=== PATIENT | male | born 1965 | race African-American/Black ===

== ENCOUNTER 2016-09-30 21:31 | Inpatient (IN) | payer OTHER ==
--- NOTE | ~2016-09-30 | DS ---
Discharge Summary [facility] [address] [place]. [address] NAME: VIANEY LOTT : 67 STATUS : DIS IN PAT#: [id number] AGE: 50 ADM/REG DATE : 09/30/16 MR#: [id number] REPORT SERV DATE: 10/22/16 DICTATED BY: KHURRAM FORD DATE: 10/21/16 REPORT STATUS : Draft TRANSCRIBED BY: MODVicky DATE: 10/21/16 Data Collection from hospitalization DISCHARGE DIAGNOSIS(ES): 1. Recurrent Clostridium difficile, status post stool transplant. 2. Chronic diarrhea. 3. Human immunodeficiency virus. 4. End-stage renal disease. 5. Chronic hypotension. 6. Chronic malnutrition. 7. Tobacco use. CONSULTATIONS: Josr Rose M.D.; Reggie Woodall M.D.; Adalid Shen M.D. PROCEDURES PERFORMED: 1. Right upper extremity fistulogram, percutaneous angioplasty of AV fistula collateral outflow with 7 mm balloon, 10/06/2016. 2. Carotid blood flow study, 10/04/2016. 3. EGD and colonoscopy, 10/07/2016. MEDICATIONS: Ziagen 300 mg daily, aspirin 81 mg daily, PhosLo two tablets with meals, Prezista 800 mg daily, Lomotil 5 mg four times a day, Tivicay 50 mg daily, Cymbalta 60 mg daily, Flonase nasal spray one spray nasally daily, Neurontin 600 mg three times a day, Lantus 10 units subcutaneously every morning, Epivir 2.5 mL daily, ProAmatine 10 mg three times a day, Zofran 4 mg every 8 hours as needed, paregoric 25 mL twice a day, Norvir 100 mg daily, Crestor 10 mg daily. He was instructed not to continue vancomycin. CONDITION AT DISCHARGE: Stable. DISPOSITION: The patient was discharged home on a low-sodium, renal diet with activities as instructed. He would follow up with Dr. Josr Rose on 10/25/2016. He would follow up with Dr. Gennaro Robins on 10/19/2016. He would follow up for hemodialysis on 10/12/2016. HOSPITAL COURSE: This is a 50-year-old man who has end-stage renal disease and dialyzes on Mondays, Wednesdays, and Fridays. The patient has a history of C difficile colitis and nonspecific diarrhea. He had been sent home and was to arrange for stool donor to get a stool transplant done, but his sister had failed stool transplant evaluation. The patient had re-presented at this time with complaints of diarrhea ranging between 6 and 12 times per day. The patient was extremely confused about the dose of tincture of opium and had not been taking it. He had diarrhea over the weekend and did not have his dialysis. He was re- admitted at this time for further evaluation and treatment. Upon admission, hemodialysis therapy was performed. The following day, he still had diarrhea. He was very weak. C difficile was now negative, but he still had diarrhea. On 10/04/2016, he was alert and cooperative. He had no focal deficits. A carotid blood flow study was performed. He was seen in consultation by Dr. Adalid Shen. The patient has said his opium drops did not work as intended and that he was still taking oral vancomycin. He described having loose light stools without mucus or fever. He did have some nausea. He Discharge Summary [address] [place]. [address] NAME: VIANYE LOTT : 67 STATUS : DIS IN PAT#: [id number] AGE: 50 ADM/REG DATE : 09/30/16 MR#: [id number] REPORT SERV DATE: 10/22/16 DICTATED BY: KHURRAM FORD DATE: 10/21/16 REPORT STATUS : Draft TRANSCRIBED BY: MONTEZ DATE: 10/21/16 felt that the patient's current diarrhea was unlikely to be due to C difficile. The patient was seen by Dr. Josr Rose. Currently, the patient says that he had no abdominal pain, but he did have diarrhea 6 to 12 times per day. He was not taking his opium. He had no nausea or vomiting. We were going to keep the patient on a tincture of opium. Paregoric was stopped. Arrangements were going to be made for a stool transplant as quickly as possible. On 10/05/2016, he has also seen by Dr. Reggie Woodall for evaluation of poorly functioning left upper extremity AV fistula. The patient has had a right radiocephalic fistula that had been placed by Dr. Glover in the past. He revised this several months prior to admission by passing an area of stenosis in the vein. They were having high venous pressures now on dialysis, and he had been asked to evaluate the patient regarding this. The patient denied any complaints other than the chronic diarrhea. He does not had any problems with his fistula. He reviewed Dr. Glover's previous op note. It appeared that the cephalic vein had been occluded. His outflow was via his basilic vein, and Dr. Glover patched a segment of his basilic vein. It looks like this patient has outflow issues for his fistula. The risks and benefits of possible intervention were discussed and he agreed to proceed. On 10/06/2016, the patient was taken to the operating room by Dr. Woodall where he underwent the above- mentioned procedure. He tolerated this well, and there were no complications. It had been elected to continue the paregoric. Hemodialysis therapy was performed. Plans were being made to proceed with stool transplant. Paregoric had been discontinued. He continued to have loose stools. On 10/07/2016, the patient underwent EGD and colonoscopy. This was performed by Dr. Josr Rose. There was gastritis in the antrum that was biopsied. There was a biopsy of the small bowel pain. Gastric fundus was also biopsied. Fecal transplant was performed. On postop day #1, he seemed to be feeling better. Paregoric was increased. He continued to have some loose stools. On 10/09/2016, his stools were still loose. He was alert and cooperative. He had good pain control. C difficile study was negative. Sliding scale insulin was increased to level 2. The next day, he had only one loose stool according to the nurse, but another nurse reported three loose stools. Oral vancomycin was stopped. The patient wanted to go home. On 10/11/2016, he had one stool that morning that was more formed. His blood sugar was elevated. His lungs were clear. He had no edema. Hemodialysis therapy was performed. He was evaluated by Physical Therapy. Discharge instructions were given. Due to his improved and stable condition, he was discharged home with the above-stated instructions. Information collected by: Yael Pemberton I submit the above information as my discharge summary. TG/MODL Khurram Ford M.D. / [id number] CC: Discharge Summary [place] [address] [place]. [address] NAME: VIANEY LOTT : 67 STATUS : DIS IN PAT#: [id number] AGE: 50 ADM/REG DATE : 09/30/16 MR#: [id number] REPORT SERV DATE: 10/22/16 DICTATED BY: KHURRAM FORD T DATE: 10/21/16 REPORT STATUS : Draft TRANSCRIBED BY: MODL DATE: 10/21/16 Pacheco Young M.D. Paul Cornea, M.D. Nabil Malek, D.O. Sachin V Phade, M.D.
--- NOTE | ~2016-09-30 | OP ---
Record Of Operation [facility] [address] [place]. [address] NAME: VIANEY LOTT : 67 STATUS : ADM IN PAT#: [id number] AGE: 50 ADM/REG DATE : 09/30/16 MR#: [id number] REPORT SERV DATE: 10/09/16 DICTATED BY: REGGEI WOODALL DATE: 10/09/16 REPORT STATUS : Draft TRANSCRIBED BY: MODL DATE: 10/09/16 DATE OF PROCEDURE: 10/06/2016 PREOPERATIVE DIAGNOSIS: End-stage renal disease with poorly functioning right upper extremity arteriovenous fistula. POSTOPERATIVE DIAGNOSIS: End-stage renal disease with poorly functioning right upper extremity arteriovenous fistula. PROCEDURE: 1. Right upper extremity fistulogram. 2. Percutaneous angioplasty of an AV fistula collateral outflow with a 7 mm balloon. SURGEON: Reggie Woodall M.D. ROLL UP GUIDER OPERATOR: None. ANESTHESIA: MAC plus local. INDICATIONS: The patient is a 50-year-old gentleman, who has had a right radiocephalic fistula with revision by Dr. Glover. He now presents with high venous pressures and needs a fistulogram with possible intervention. DESCRIPTION OF PROCEDURE: After informed consent was obtained, the patient was taken to the operating room, and placed in the supine position on the operating table. Monitored anesthesia was administered. The patient's right upper extremity was prepped and draped in usual sterile fashion. Ultrasound-guided access was obtained of the right upper extremity AV fistula in an antegrade fashion. I obtained a fistulogram. This demonstrated a patent radiocephalic fistula. At the antecubital fossa, there were simply collaterals providing outflow. There was no named outflow. There was reconstitution of the deep venous system more centrally. I placed a sheath and tried to cross into a basilic or cephalic vein. I was unsuccessful. I obtained multiple oblique angiograms and was ultimately able to get a wire into a collateral more centrally toward the shoulder. Once again, appeared to be in a series of collaterals. I angioplastied the areas of stenoses within these collaterals with a 7 mm balloon. There was marked improvement with this, but there was still a relatively suboptimal outflow for this fistula. Seeing as there was no straight forward answer for this, I withdrew my wire, catheter, and sheath and placed a stitch for hemostasis. The patient tolerated the procedure well without any intraprocedural complications noted. KHLOE/MONTEZ Reggie Woodall M.D. Record Of Operation [address] [place]. [address] NAME: VIANEY LOTT : 67 STATUS : ADM IN [facility]#: [id number] AGE: 50 ADM/REG DATE : 09/30/16 MR#: [id number] REPORT SERV DATE: 10/09/16 DICTATED BY: REGGIE WOODALL DATE: 10/09/16 REPORT STATUS : Draft TRANSCRIBED BY: MONTEZ DATE: 10/09/16 / [id number] CC: Khurram Child M.D.
--- NOTE | ~2016-09-30 | CN ---
Consultation Report [facility] [address] [place]. [address] NAME: VIANEY LOTT : 67 STATUS : ADM IN [facility]#: [id number] AGE: 50 ADM/REG DATE : 09/30/16 MR#: [id number] REPORT SERV DATE: 10/04/16 DICTATED BY: SHRUTHI CHARLES DATE: 10/03/16 REPORT STATUS : Draft TRANSCRIBED BY: MODVicky DATE: 10/03/16 CONSULTATION MR. KAYLIE WINTERS IS A PLEASANT GENTLEMAN WITH A HISTORY OF C. DIFF COLITIS AND HIV, ALSO HAS NONSPECIFIC DIARRHEA. THE PATIENT HAD BEEN SENT HOME AND WAS TO ARRANGE FOR A STOOL DONOR TO GET A STOOL TRANSPLANT DONE BUT HIS SISTER HAS FAILED STOOL TRANSPLANT EVALUATION, AND THE PATIENT IS BACK HERE WITH COMPLAINTS OF DIARRHEA BETWEEN 6 AND 12 TIMES PER DAY. ALSO, THE PATIENT IS EXTREMELY CONFUSED ABOUT THE DOSE OF TINCTURE OF OPIUM AND HAS NOT BEEN TAKING IT. HE HAD DIARRHEA OVER THE WEEKEND, DID NOT HAVE HIS DIALYSIS, WAS READMITTED FOR EVALUATION AND DIALYSIS. CURRENTLY, THE PATIENT STATES THAT HE HAS NO ABDOMINAL PAIN BUT HAS DIARRHEA FROM 6-12 TIMES PER DAY AND IS NOT TAKING HIS TINCTURE OF OPIUM. HAS NO NAUSEA OR VOMITING. DATE OF CONSULTATION: SOCIAL HISTORY: Does not take any alcohol. Does not take any IV drugs. FAMILY HISTORY: Unremarkable at this time. PAST MEDICAL HISTORY: Significant for C. diff colitis and chronic kidney failure, on permanent dialysis and has HIV infection. The HIV infection is being treated by Dr. Robins. PHYSICAL EXAMINATION: VITAL SIGNS: His temperature is normal. BP is 150/80. Peripheral pulses are well felt. NECK: Supple. Trachea is central. Carotids are well felt on both sides. CARDIOVASCULAR SYSTEM: S1, S2 are heard. There is no S3. LABORATORY DATA: Labs show a white cell count of 8.2, hemoglobin is 11, hematocrit is 34, and platelet count is 116,000. Renal function panel shows a sodium of 144, potassium is 4.5, chloride is 112, carbon dioxide is 14. BUN is 44. Creatinine is 12.5. Blood sugar is 105. Calcium is 6. Albumin is 2.5. SGOT and SGPT are 99 and 85. Alkaline phosphatase is 180. Total bilirubin is 0.6 and amylase is low as 26. His stools are negative for C. diff. CURRENT MEDICATIONS: Abacavir 1 tablet daily; aspirin 81 mg daily; calcium acetate 667 mg daily; Prezista 800 mg 1 tablet daily; Lomotil 2.5 mg 3 times a day; Tivicay 50 mg per day; Cymbalta 60 mg per day; Flonase 1 spray twice daily; gabapentin 600 mg p.o. b.i.d.; insulin Lantus 10 units subcu every morning; lamivudine 2.5 mL p.o. daily; midodrine 10 mg p.o. 3 times a day; Paregoric 5 mL daily; Norvir 100 mg 1 cap daily; Crestor 10 mg per day; and vancomycin 125 mg p.o. twice a day. IMPRESSION: 1. Chronic diarrhea, C. diff negative at this time. 2. End-stage renal disease. 3. HIV infection treatment. Consultation Report [place] [address] [place]. [address] NAME: VIANEY LOTT : 67 STATUS : ADM IN [facility]#: [id number] AGE: 50 ADM/REG DATE : 09/30/16 MR#: [id number] REPORT SERV DATE: 10/04/16 DICTATED BY: SHRUTHI CHARLES DATE: 10/03/16 REPORT STATUS : Draft TRANSCRIBED BY: MONTEZ DATE: 10/03/16 4. Diabetes mellitus. PLAN: We will keep the patient on tincture of opium. We will stop the paregoric. We will arrange for a transplant as quickly as possible. ELY/MONTEZ Shruthi Charles M.D. / [id number] CC: Khurram Child M.D.
--- NOTE | ~2016-09-30 | CN ---
Consultation Report [facility] [address] [place]. [address] NAME: VIANEY LOTT : 67 STATUS : ADM IN PAT#: [id number] AGE: 50 ADM/REG DATE : 09/30/16 MR#: [id number] REPORT SERV DATE: 10/10/16 DICTATED BY: REGGIE WOODALL DATE: 10/09/16 REPORT STATUS : Draft TRANSCRIBED BY: MODVicky DATE: 10/09/16 CONSULT NOTE DATE OF CONSULTATION: 10/06/2016 REASON FOR CONSULTATION: Evaluation for poorly functioning left upper extremity AV fistula. BRIEF HISTORY: The patient is a 50-year-old gentleman with past medical history significantfor end-stage renal disease, diabetes, and HIV who was admitted to the hospital for C. difficile colitis. He has been actually apparently needing a stool transplant. He has had a right radiocephalic fistula placed by Dr. Glover in the past. He revised it several months ago by patching an area of stenosis in the vein. They were having high venous pressures, now on dialysis, so I was asked to evaluate him for this. The patient denies any complaints other than chronic diarrhea. He does not have any problems with his fistula. PAST MEDICAL HISTORY: C. difficile colitis, end-stage renal disease, HIV infection, diabetes. SURGICAL HISTORY: The aforementioned dialysis procedures. SOCIAL HISTORY: He denies any alcohol or drug use, but continues to smoke. FAMILY HISTORY: Unremarkable. MEDICATIONS AND ALLERGIES: Documented on the chart and were reviewed. REVIEW OF SYSTEMS: A complete review of systems was performed and is negative with the exception of the aforementioned findings. PHYSICAL EXAMINATION: VITAL SIGNS: Documented on the chart and were reviewed. GENERAL: The patient is awake, alert, oriented, in no apparent distress. HEAD AND NECK: Benign without any carotid bruits. HEART: Regular rate rhythm. LUNGS: Clear. ABDOMEN: Soft, nontender, nondistended with a nonaneurysmal aorta. EXTREMITIES: He has a normal complement of upper extremity pulses without any significant edema or ischemic ulcerations. His right radiocephalic fistula is pulsatile. He has palpable femoral pulses. His feet are pink and warm. NEUROLOGIC: Grossly nonfocal. MUSCULOSKELETAL: Otherwise benign. Consultation Report [facility] [address] [place]. [address] NAME: VIANEY LOTT : 67 STATUS : ADM IN PAT#: [id number] AGE: 50 ADM/REG DATE : 09/30/16 MR#: [id number] REPORT SERV DATE: 10/10/16 DICTATED BY: REGGIE WOODALL DATE: 10/09/16 REPORT STATUS : Draft TRANSCRIBED BY: MONTEZ DATE: 10/09/[address] Glover's previous operative notes. It sounds like his cephalic vein has been occluded. His outflow was via his basilic vein and Dr. Glover patched a segment of his basilic vein. ASSESSMENT AND PLAN: It looks like this gentleman has outflow issues for his fistula. I talked to him about the risks, benefits, and alternatives of the fistulogram with possible intervention. He agrees to proceed. KHLOE/MONTEZ Reggie Woodall M.D. / [id number] CC: Khurram Child M.D.
[~2016-09-30 21:31] MED LIST: ADALAT CC60 MG PO; APRES25 PO; ASAB PO; COREG25 PO; CRESTOR PO; CRESTOR10 PO; CYMBALTA60 PO; DEMA20 PO; DEMADEX PO; EPIVIR PO; FLAG500TAB PO; FLEX PO; FLONASE NAS; FLORASTOR250 MG PO; HUMALOG SC; HUMALOGPEN SC; IMOD PO; LAMIVUDINE PO; LANTUS SC; LANTUSCART SC; LOM PO; MIDODRINE PO; NEUR600 PO; NIFEDIAC CC60 MG PO; NORVIR100 PO; PAREGORIC TINCT5 ML PO/LIQ; PHOSLO PO; PREZISTA PO; PREZISTA600 MG PO; PREZISTA800 MG PO; PROAMATINE10 MG PO; TINCTURE OF OPIUM PO; TIVICAY50 MG PO; TRIUMEQ; TRIUMEQ 600/50/300 PO; ULTRAM50 PO; VALTREX5 PO; VANCOCIN HCL125 MG PO; ZIAGEN 300 MG300 MG PO; ZOFRAN ODT4 MG PO; ZOFRAN4 PO; [UNRECOGNIZED DRUG - OTHER]; [UNRECOGNIZED DRUG - OTHER] PO
[2016-10-01 04:03] LABS: BASOPHILS 0.3 %; BASOPHILS ABSOLUTE 0.02 10/3/uL (0.0-0.16); EOSINOPHILS 1.7 %; EOSINOPHILS ABSOLUTE 0.13 10/3/uL (0.0-0.53); HEMATOCRIT 31.2 % (40.0-51.0); HEMOGLOBIN 10.5 g/dL (13.6-17.8); IMMATURE GRANULOCYTES 0.1 %; IMMATURE GRANULOCYTES ABSOLUTE 0.01 10/3/uL (0.0-0.11); LYMPHOCYTES 36.8 %; LYMPHOCYTES ABSOLUTE 2.76 10/3/uL (0.67-4.30); MEAN CORPUS HGB CONC 33.7 g/dL (32.0-36.0); MEAN CORPUSCULAR HEMOGLOB 31.4 pg (26.0-34.0); MEAN CORPUSCULAR VOLUME 93.4 fL (80-100); MONOCYTES 5.5 %; MONOCYTES ABSOLUTE 0.41 10/3/uL (0.21-1.20); NEUTROPHILS 55.6 %; NEUTROPHILS ABSOLUTE 4.17 10/3/uL (2.02-8.40); RBC DISTRIBUTION WIDTH 15.6 % (12.0-16.0); RED CELL COUNT 3.34 10/6/uL (4.7-6.1); WHITE BLOOD CELLS 7.5 10/3/uL (4.5-10.5)
[2016-10-01 04:05] LABS: MANUAL DIFF NO %; PLATELET COUNT 79 10/3/uL (150-400)
[2016-10-01 04:25] LABS: ALBUMIN 2.8 G/DL (3.5-5.0); CHLORIDE, SERUM 109 MMOL/L (96-112); SODIUM, SERUM 143 MMOL/L (135-148)
[2016-10-01 04:30] LABS: BUN (BLOOD UREA NITROGEN) 28 MG/DL (6-23); CALCIUM, SERUM 6.2 MG/DL (8.5-10.4); CO2 (CARBON DIOXIDE) 19 MMOL/L (24-34); GFR AFRICAN AMERICAN 7 ML/MIN (>=60); GFR NON AFRICAN AMERICAN 6 ML/MIN (>=60); GLUCOSE, SERUM 136 MG/DL (60-99); PHOSPHORUS, SERUM 6.1 MG/DL (2.5-4.5)
[2016-10-01 04:43] LABS: PLATELET ESTIMATE DEC (ADEQUATE); RBC MORPHOLOGY NORM (NORMAL)
[2016-10-02 05:01] LABS: BASOPHILS 0.3 %; BASOPHILS ABSOLUTE 0.03 10/3/uL (0.0-0.16); EOSINOPHILS 2.5 %; EOSINOPHILS ABSOLUTE 0.22 10/3/uL (0.0-0.53); HEMATOCRIT 31.1 % (40.0-51.0); HEMOGLOBIN 10.4 g/dL (13.6-17.8); IMMATURE GRANULOCYTES 0.1 %; IMMATURE GRANULOCYTES ABSOLUTE 0.01 10/3/uL (0.0-0.11); LYMPHOCYTES 39.7 %; LYMPHOCYTES ABSOLUTE 3.43 10/3/uL (0.67-4.30); MEAN CORPUS HGB CONC 33.4 g/dL (32.0-36.0); MEAN CORPUSCULAR HEMOGLOB 31.3 pg (26.0-34.0); MEAN CORPUSCULAR VOLUME 93.7 fL (80-100); MEAN PLATELET VOLUME 11.1 fL (9.2-13.0); MONOCYTES 7.1 %; MONOCYTES ABSOLUTE 0.61 10/3/uL (0.21-1.20); NEUTROPHILS 50.3 %; NEUTROPHILS ABSOLUTE 4.35 10/3/uL (2.02-8.40); PLATELET COUNT 77 10/3/uL (150-400); RBC DISTRIBUTION WIDTH 15.8 % (12.0-16.0); RED CELL COUNT 3.32 10/6/uL (4.7-6.1); WHITE BLOOD CELLS 8.7 10/3/uL (4.5-10.5)
[2016-10-02 05:05] LABS: MANUAL DIFF NO %
[2016-10-02 05:15] LABS: ALBUMIN 2.8 G/DL (3.5-5.0); CHLORIDE, SERUM 108 MMOL/L (96-112); CO2 (CARBON DIOXIDE) 18 MMOL/L (24-34); GLUCOSE, SERUM 163 MG/DL (60-99); POTASSIUM, SERUM 4.4 MMOL/L (3.5-5.3); SODIUM, SERUM 140 MMOL/L (135-148)
[2016-10-02 05:23] LABS: BUN (BLOOD UREA NITROGEN) 36 MG/DL (6-23); CALCIUM, SERUM 6.5 MG/DL (8.5-10.4); GFR AFRICAN AMERICAN 6 ML/MIN (>=60); GFR NON AFRICAN AMERICAN 5 ML/MIN (>=60); PHOSPHORUS, SERUM 7.5 MG/DL (2.5-4.5)
[2016-10-03 11:35] LABS: HEMATOCRIT 33.6 % (40.0-51.0); HEMOGLOBIN 11.4 g/dL (13.6-17.8); MEAN CORPUS HGB CONC 33.9 g/dL (32.0-36.0); MEAN CORPUSCULAR HEMOGLOB 31.9 pg (26.0-34.0); MEAN CORPUSCULAR VOLUME 94.1 fL (80-100); MEAN PLATELET VOLUME 11.6 fL (9.2-13.0); PLATELET COUNT 75 10/3/uL (150-400); RBC DISTRIBUTION WIDTH 15.8 % (12.0-16.0); RED CELL COUNT 3.57 10/6/uL (4.7-6.1)
[2016-10-03 11:36] LABS: MANUAL DIFF YES %; WHITE BLOOD CELLS 12.6 10/3/uL (4.5-10.5)
[2016-10-03 11:58] LABS: ALBUMIN 2.8 G/DL (3.5-5.0); CALCIUM, SERUM 7.1 MG/DL (8.5-10.4); CHLORIDE, SERUM 109 MMOL/L (96-112); PHOSPHORUS, SERUM 7.9 MG/DL (2.5-4.5); SODIUM, SERUM 137 MMOL/L (135-148)
[2016-10-03 12:00] LABS: EOSINOPHILS 2 %; EOSINOPHILS ABSOLUTE (CALC) 0.25 10/3/uL (0.0-0.53); LYMPHOCYTES 15 %; LYMPHOCYTES ABSOLUTE (CALC) 1.89 10/3/uL (0.67-4.30); MONOCYTES 2 %; MONOCYTES ABSOLUTE (CALC) 0.25 10/3/uL (0.21-1.20); NEUTROPHILS ABSOLUTE (CALC) 10.21 10/3/uL (2.02-8.40); PLATELET ESTIMATE DEC (ADEQUATE); RBC MORPHOLOGY NORM (NORMAL); SEGMENTED NEUTROPHIL (0) 81 %; TOTAL NUCLEATED CELLS 100
[2016-10-03 12:01] LABS: BUN (BLOOD UREA NITROGEN) 47 MG/DL (6-23); CO2 (CARBON DIOXIDE) 14 MMOL/L (24-34); GFR AFRICAN AMERICAN 5 ML/MIN (>=60); GFR NON AFRICAN AMERICAN 5 ML/MIN (>=60); GLUCOSE, SERUM 124 MG/DL (60-99); POTASSIUM, SERUM 5.4 MMOL/L (3.5-5.3)
[2016-10-03 16:10] LABS: CPK 65 U/L (0-200); TROPONIN I <0.02 NG/ML (<0.05)
[2016-10-03 16:12] LABS: CK-MB 3.9 NG/ML
[2016-10-03 21:41] LABS: CPK 67 U/L (0-200); TROPONIN I <0.02 NG/ML (<0.05)
[2016-10-04 04:15] LABS: BASOPHILS 0.4 %; BASOPHILS ABSOLUTE 0.03 10/3/uL (0.0-0.16); EOSINOPHILS 3.1 %; EOSINOPHILS ABSOLUTE 0.25 10/3/uL (0.0-0.53); HEMATOCRIT 32.2 % (40.0-51.0); HEMOGLOBIN 11.1 g/dL (13.6-17.8); IMMATURE GRANULOCYTES 0.1 %; IMMATURE GRANULOCYTES ABSOLUTE 0.01 10/3/uL (0.0-0.11); LYMPHOCYTES 34.9 %; LYMPHOCYTES ABSOLUTE 2.79 10/3/uL (0.67-4.30); MEAN CORPUS HGB CONC 34.5 g/dL (32.0-36.0); MEAN CORPUSCULAR VOLUME 92.8 fL (80-100); MEAN PLATELET VOLUME 11.6 fL (9.2-13.0); MONOCYTES ABSOLUTE 0.48 10/3/uL (0.21-1.20); NEUTROPHILS 55.5 %; NEUTROPHILS ABSOLUTE 4.43 10/3/uL (2.02-8.40); PLATELET COUNT 76 10/3/uL (150-400); RBC DISTRIBUTION WIDTH 15.5 % (12.0-16.0); RED CELL COUNT 3.47 10/6/uL (4.7-6.1)
[2016-10-04 04:19] LABS: MANUAL DIFF NO %
[2016-10-04 04:24] LABS: CALCIUM, SERUM 7.6 MG/DL (8.5-10.4); CHLORIDE, SERUM 107 MMOL/L (96-112); GLUCOSE, SERUM 144 MG/DL (60-99); SODIUM, SERUM 139 MMOL/L (135-148)
[2016-10-04 04:27] LABS: CPK 61 U/L (0-200); TROPONIN I 0.02 NG/ML (<0.05)
[2016-10-04 04:41] LABS: ALBUMIN 3.6 G/DL (3.5-5.0); BUN (BLOOD UREA NITROGEN) 28 MG/DL (6-23); CO2 (CARBON DIOXIDE) 20 MMOL/L (24-34); CREATININE 7.95 MG/DL (0.70-1.30); GFR AFRICAN AMERICAN 8 ML/MIN (>=60); GFR NON AFRICAN AMERICAN 7 ML/MIN (>=60); PHOSPHORUS, SERUM 5.8 MG/DL (2.5-4.5); POTASSIUM, SERUM 4.2 MMOL/L (3.5-5.3)
[2016-10-04 04:42] LABS: CK-MB 4.1 NG/ML
[2016-10-04 04:56] LABS: PLATELET ESTIMATE DEC (ADEQUATE)
[2016-10-04 04:57] LABS: RBC MORPHOLOGY NORM (NORMAL)
[2016-10-05 19:28] LABS: BASOPHILS 0.6 %; BASOPHILS ABSOLUTE 0.05 10/3/uL (0.0-0.16); EOSINOPHILS 3.2 %; EOSINOPHILS ABSOLUTE 0.29 10/3/uL (0.0-0.53); HEMATOCRIT 32.1 % (40.0-51.0); HEMOGLOBIN 10.8 g/dL (13.6-17.8); IMMATURE GRANULOCYTES 0.1 %; IMMATURE GRANULOCYTES ABSOLUTE 0.01 10/3/uL (0.0-0.11); LYMPHOCYTES 42.4 %; MEAN CORPUS HGB CONC 33.6 g/dL (32.0-36.0); MEAN CORPUSCULAR VOLUME 92.2 fL (80-100); MEAN PLATELET VOLUME 10.7 fL (9.2-13.0); MONOCYTES 9.4 %; MONOCYTES ABSOLUTE 0.84 10/3/uL (0.21-1.20); NEUTROPHILS 44.3 %; NEUTROPHILS ABSOLUTE 3.98 10/3/uL (2.02-8.40); PLATELET COUNT 92 10/3/uL (150-400); RBC DISTRIBUTION WIDTH 15.5 % (12.0-16.0); RED CELL COUNT 3.48 10/6/uL (4.7-6.1)
[2016-10-05 19:29] LABS: MANUAL DIFF NO %
[2016-10-05 19:48] LABS: ALBUMIN 3.8 G/DL (3.5-5.0); BUN (BLOOD UREA NITROGEN) 47 MG/DL (6-23); CALCIUM, SERUM 7.6 MG/DL (8.5-10.4); CHLORIDE, SERUM 105 MMOL/L (96-112); CO2 (CARBON DIOXIDE) 19 MMOL/L (24-34); GFR AFRICAN AMERICAN 6 ML/MIN (>=60); GFR NON AFRICAN AMERICAN 5 ML/MIN (>=60); GLUCOSE, SERUM 152 MG/DL (60-99); PHOSPHORUS, SERUM 6.7 MG/DL (2.5-4.5); SODIUM, SERUM 139 MMOL/L (135-148)
[2016-10-06 05:41] LABS: BASOPHILS 0.3 %; BASOPHILS ABSOLUTE 0.02 10/3/uL (0.0-0.16); EOSINOPHILS 2.8 %; EOSINOPHILS ABSOLUTE 0.22 10/3/uL (0.0-0.53); HEMATOCRIT 30.6 % (40.0-51.0); HEMOGLOBIN 10.3 g/dL (13.6-17.8); IMMATURE GRANULOCYTES 0.1 %; IMMATURE GRANULOCYTES ABSOLUTE 0.01 10/3/uL (0.0-0.11); LYMPHOCYTES 33.3 %; LYMPHOCYTES ABSOLUTE 2.58 10/3/uL (0.67-4.30); MEAN CORPUS HGB CONC 33.7 g/dL (32.0-36.0); MEAN CORPUSCULAR HEMOGLOB 31.2 pg (26.0-34.0); MEAN CORPUSCULAR VOLUME 92.7 fL (80-100); MEAN PLATELET VOLUME 10.8 fL (9.2-13.0); MONOCYTES 10.6 %; MONOCYTES ABSOLUTE 0.82 10/3/uL (0.21-1.20); NEUTROPHILS 52.9 %; PLATELET COUNT 84 10/3/uL (150-400); RBC DISTRIBUTION WIDTH 15.5 % (12.0-16.0); WHITE BLOOD CELLS 7.8 10/3/uL (4.5-10.5)
[2016-10-06 05:47] LABS: MANUAL DIFF NO %
[2016-10-06 05:59] LABS: ALBUMIN 4.4 G/DL (3.5-5.0); CALCIUM, SERUM 8.2 MG/DL (8.5-10.4); CHLORIDE, SERUM 103 MMOL/L (96-112); GLUCOSE, SERUM 128 MG/DL (60-99); POTASSIUM, SERUM 4.8 MMOL/L (3.5-5.3); SODIUM, SERUM 141 MMOL/L (135-148)
[2016-10-06 06:04] LABS: BUN (BLOOD UREA NITROGEN) 31 MG/DL (6-23); CO2 (CARBON DIOXIDE) 25 MMOL/L (24-34); CREATININE 7.69 MG/DL (0.70-1.30); GFR AFRICAN AMERICAN 9 ML/MIN (>=60); GFR NON AFRICAN AMERICAN 7 ML/MIN (>=60)
[2016-10-06 06:05] LABS: PHOSPHORUS, SERUM 5.6 MG/DL (2.5-4.5)
[2016-10-07 18:19] LABS: BASOPHILS 0.7 %; BASOPHILS ABSOLUTE 0.05 10/3/uL (0.0-0.16); EOSINOPHILS 3.7 %; EOSINOPHILS ABSOLUTE 0.28 10/3/uL (0.0-0.53); HEMATOCRIT 30.1 % (40.0-51.0); HEMOGLOBIN 10.1 g/dL (13.6-17.8); IMMATURE GRANULOCYTES 0.3 %; IMMATURE GRANULOCYTES ABSOLUTE 0.02 10/3/uL (0.0-0.11); LYMPHOCYTES 35.5 %; LYMPHOCYTES ABSOLUTE 2.67 10/3/uL (0.67-4.30); MEAN CORPUS HGB CONC 33.6 g/dL (32.0-36.0); MEAN CORPUSCULAR HEMOGLOB 31.3 pg (26.0-34.0); MEAN CORPUSCULAR VOLUME 93.2 fL (80-100); MEAN PLATELET VOLUME 11.2 fL (9.2-13.0); MONOCYTES 8.4 %; MONOCYTES ABSOLUTE 0.63 10/3/uL (0.21-1.20); NEUTROPHILS 51.4 %; NEUTROPHILS ABSOLUTE 3.87 10/3/uL (2.02-8.40); PLATELET COUNT 87 10/3/uL (150-400); RBC DISTRIBUTION WIDTH 15.4 % (12.0-16.0); RED CELL COUNT 3.23 10/6/uL (4.7-6.1); WHITE BLOOD CELLS 7.5 10/3/uL (4.5-10.5)
[2016-10-07 18:20] LABS: MANUAL DIFF NO %
[2016-10-07 18:29] LABS: ALBUMIN 3.8 G/DL (3.5-5.0); BUN (BLOOD UREA NITROGEN) 39 MG/DL (6-23); CALCIUM, SERUM 8.2 MG/DL (8.5-10.4); CHLORIDE, SERUM 105 MMOL/L (96-112); CO2 (CARBON DIOXIDE) 22 MMOL/L (24-34); CREATININE 9.45 MG/DL (0.70-1.30); GFR AFRICAN AMERICAN 7 ML/MIN (>=60); GFR NON AFRICAN AMERICAN 6 ML/MIN (>=60); GLUCOSE, SERUM 180 MG/DL (60-99); PHOSPHORUS, SERUM 7.1 MG/DL (2.5-4.5); POTASSIUM, SERUM 4.9 MMOL/L (3.5-5.3); SODIUM, SERUM 140 MMOL/L (135-148)
[2016-10-08 05:39] LABS: BASOPHILS 0.5 %; BASOPHILS ABSOLUTE 0.03 10/3/uL (0.0-0.16); EOSINOPHILS 3.7 %; EOSINOPHILS ABSOLUTE 0.22 10/3/uL (0.0-0.53); HEMATOCRIT 29.8 % (40.0-51.0); IMMATURE GRANULOCYTES 0.2 %; IMMATURE GRANULOCYTES ABSOLUTE 0.01 10/3/uL (0.0-0.11); LYMPHOCYTES ABSOLUTE 2.41 10/3/uL (0.67-4.30); MEAN CORPUS HGB CONC 33.6 g/dL (32.0-36.0); MEAN CORPUSCULAR HEMOGLOB 31.5 pg (26.0-34.0); MEAN PLATELET VOLUME 11.6 fL (9.2-13.0); MONOCYTES 9.7 %; MONOCYTES ABSOLUTE 0.57 10/3/uL (0.21-1.20); NEUTROPHILS 44.9 %; NEUTROPHILS ABSOLUTE 2.64 10/3/uL (2.02-8.40); PLATELET COUNT 88 10/3/uL (150-400); RBC DISTRIBUTION WIDTH 15.4 % (12.0-16.0); RED CELL COUNT 3.17 10/6/uL (4.7-6.1); WHITE BLOOD CELLS 5.9 10/3/uL (4.5-10.5)
[2016-10-08 05:44] LABS: MANUAL DIFF NO %
[2016-10-08 05:47] LABS: ALBUMIN 3.9 G/DL (3.5-5.0); CALCIUM, SERUM 8.2 MG/DL (8.5-10.4); CHLORIDE, SERUM 108 MMOL/L (96-112); CO2 (CARBON DIOXIDE) 22 MMOL/L (24-34); GLUCOSE, SERUM 183 MG/DL (60-99); POTASSIUM, SERUM 4.1 MMOL/L (3.5-5.3); SODIUM, SERUM 144 MMOL/L (135-148)
[2016-10-08 06:03] LABS: BUN (BLOOD UREA NITROGEN) 22 MG/DL (6-23); CREATININE 6.04 MG/DL (0.70-1.30); GFR AFRICAN AMERICAN 12 ML/MIN (>=60); GFR NON AFRICAN AMERICAN 10 ML/MIN (>=60); PHOSPHORUS, SERUM 5.1 MG/DL (2.5-4.5)
[2016-10-09 06:53] LABS: ALBUMIN 3.6 G/DL (3.5-5.0); CALCIUM, SERUM 7.7 MG/DL (8.5-10.4); CHLORIDE, SERUM 105 MMOL/L (96-112); CO2 (CARBON DIOXIDE) 24 MMOL/L (24-34); SODIUM, SERUM 141 MMOL/L (135-148)
[2016-10-09 06:55] LABS: BUN (BLOOD UREA NITROGEN) 35 MG/DL (6-23); CREATININE 7.94 MG/DL (0.70-1.30); GFR AFRICAN AMERICAN 8 ML/MIN (>=60); GFR NON AFRICAN AMERICAN 7 ML/MIN (>=60); GLUCOSE, SERUM 223 MG/DL (60-99); PHOSPHORUS, SERUM 6.8 MG/DL (2.5-4.5); POTASSIUM, SERUM 5.3 MMOL/L (3.5-5.3)
[2016-10-10 17:45] LABS: BASOPHILS 0.4 %; BASOPHILS ABSOLUTE 0.03 10/3/uL (0.0-0.16); EOSINOPHILS ABSOLUTE 0.39 10/3/uL (0.0-0.53); HEMATOCRIT 27.6 % (40.0-51.0); HEMOGLOBIN 9.4 g/dL (13.6-17.8); IMMATURE GRANULOCYTES 0.1 %; IMMATURE GRANULOCYTES ABSOLUTE 0.01 10/3/uL (0.0-0.11); LYMPHOCYTES 39.5 %; LYMPHOCYTES ABSOLUTE 3.05 10/3/uL (0.67-4.30); MEAN CORPUS HGB CONC 34.1 g/dL (32.0-36.0); MEAN CORPUSCULAR HEMOGLOB 31.3 pg (26.0-34.0); MEAN PLATELET VOLUME 11.2 fL (9.2-13.0); MONOCYTES 7.2 %; MONOCYTES ABSOLUTE 0.56 10/3/uL (0.21-1.20); NEUTROPHILS 47.8 %; NEUTROPHILS ABSOLUTE 3.69 10/3/uL (2.02-8.40); PLATELET COUNT 103 10/3/uL (150-400); RBC DISTRIBUTION WIDTH 15.4 % (12.0-16.0); WHITE BLOOD CELLS 7.7 10/3/uL (4.5-10.5)
[2016-10-10 17:48] LABS: MANUAL DIFF NO %
[2016-10-10 17:54] LABS: ALBUMIN 3.5 G/DL (3.5-5.0); BUN (BLOOD UREA NITROGEN) 54 MG/DL (6-23); CALCIUM, SERUM 7.6 MG/DL (8.5-10.4); CHLORIDE, SERUM 107 MMOL/L (96-112); CO2 (CARBON DIOXIDE) 18 MMOL/L (24-34); CREATININE 9.89 MG/DL (0.70-1.30); GFR AFRICAN AMERICAN 6 ML/MIN (>=60); GFR NON AFRICAN AMERICAN 6 ML/MIN (>=60); GLUCOSE, SERUM 209 MG/DL (60-99); PHOSPHORUS, SERUM 8.5 MG/DL (2.5-4.5); POTASSIUM, SERUM 4.6 MMOL/L (3.5-5.3); SODIUM, SERUM 139 MMOL/L (135-148)
[2016-11-08] MEDS ORDERED: NOVOPEN SC (12:08)
== END 2016-10-11 15:50 | disposition home or self-care (01) | DRG 356 ==
LOC: 2SO 21:31
PROVIDERS: Internal Medicine Gastroenterology; Internal Medicine Nephrology; Nurse Practitioner; Registered Nurse
PROC: 0DB58ZX Excision of Esophagus, Via Natural or Artificial Opening Endoscopic, Diagnostic (ICD-10-PCS; 2016-10-07)
PROC: 0DB68ZX Excision of Stomach, Via Natural or Artificial Opening Endoscopic, Diagnostic (ICD-10-PCS; 2016-10-07)
PROC: 3E0H8GC Introduction of Other Therapeutic Substance into Lower GI, Via Natural or Artificial Opening Endoscopic (ICD-10-PCS; 2016-10-07)
PROC: 0DJD8ZZ Inspection of Lower Intestinal Tract, Via Natural or Artificial Opening Endoscopic (ICD-10-PCS; 2016-10-07)
PROC: 5A1D60Z (ICD-10-PCS; 2016-10-07)
PROC: 0DB88ZX Excision of Small Intestine, Via Natural or Artificial Opening Endoscopic, Diagnostic (ICD-10-PCS; 2016-10-07 14:00)
PROC: 057D3ZZ Dilation of Right Cephalic Vein, Percutaneous Approach (ICD-10-PCS; principal; 2016-10-09)
PROC: B51W1ZZ Fluoroscopy of Dialysis Shunt/Fistula using Low Osmolar Contrast (ICD-10-PCS; 2016-10-09)
DX: A04.7 Enterocolitis due to Clostridium difficile (principal); B20 Human immunodeficiency virus [HIV] disease; N18.6 End stage renal disease; I12.0 Hypertensive chronic kidney disease with stage 5 chronic kidney disease or end stage renal disease; B37.81 Candidal esophagitis; I95.9 Hypotension, unspecified; T82.590A Other mechanical complication of surgically created arteriovenous fistula, initial encounter; E44.1 Mild protein-calorie malnutrition; N39.0 Urinary tract infection, site not specified; I69.354 Hemiplegia and hemiparesis following cerebral infarction affecting left non-dominant side; E11.22 Type 2 diabetes mellitus with diabetic chronic kidney disease; R55 Syncope and collapse; K29.50 Unspecified chronic gastritis without bleeding; D50.9 Iron deficiency anemia, unspecified; K64.9 Unspecified hemorrhoids; E11.42 Type 2 diabetes mellitus with diabetic polyneuropathy; D69.6 Thrombocytopenia, unspecified; Z99.2 Dependence on renal dialysis; Z79.4 Long term (current) use of insulin; Z68.22 Body mass index [BMI] 22.0-22.9, adult; E83.51 Hypocalcemia; Z79.899 Other long term (current) drug therapy
CPT/HCPCS: 36902; 80053; 80069; 81001; 82330; 82550; 82553; 82962; 83690; 83735; 84484; 85025; 87040; 87493; 87493-59; 88305; 88312; 88342; 93005; 93880; 97161-GP; 99285; A9270-GY; C1725; C1769; C1894; G0257; J0610; J2370; J2405; J3010; P9047; Q9966

== ENCOUNTER 2016-11-11 15:06 | Inpatient (IN) | payer OTHER ==
--- NOTE | ~2016-11-11 | OP ---
Record Of Operation [facility] [address] [place]. [address] NAME: VIANEY LOTT : 67 STATUS : ADM IN PAT#: [id number] AGE: 50 ADM/REG DATE : 11/11/16 MR#: [id number] REPORT SERV DATE: 11/26/16 DICTATED BY: REGGIE WOODALL DATE: 11/26/16 REPORT STATUS : Draft TRANSCRIBED BY: MODL DATE: 11/26/16 DATE OF PROCEDURE: 11/25/2016 PREOPERATIVE DIAGNOSES: 1. End-stage renal disease. 2. Right internal jugular occlusion. 3. Recent PermCath infection. POSTOPERATIVE DIAGNOSES: 1. End-stage renal disease. 2. Right internal jugular occlusion. 3. Recent PermCath infection. PROCEDURE: Left IJ PermCath. SURGEON: Reggie Woodall M.D. INDUSTRIAL MAINTENANCE TECH: None. ANESTHESIA: IV sedation and local. INDICATIONS: The patient is a 50-year-old gentleman, with multiple comorbidities, who had a left IJ Vas-Cath placed after a catheter was removed from his right neck for an infection. He now needs longer-term access, so he was consented for intervention. DESCRIPTION OF PROCEDURE: After informed consent was obtained, the patient was taken to the operating room, and placed in the supine position on the operating table. Monitored anesthesia was administered. The patient's left neck and chest were prepped and draped in usual sterile fashion. I began by inserting a wire under fluoroscopic guidance through the existing Vas-Cath. I removed the Vas-Cath. I exchanged out my gloves and cleaned up the area. I made a small skin incision along the left chest after administering additional local anesthesia. I selected and tunneled a 24 cm GlidePath catheter from the left chest to the left neck. I inserted a peel-away sheath over the aforementioned wire using fluoroscopic guidance. I subsequently inserted the catheter into the peel-away sheath under fluoroscopy and peeled away the sheath. I confirmed that the catheter was not kinked and that it aspirated and flushed well. The catheter tip terminated in the right atrium. The catheter was not kinked. The left neck wound was closed. The catheter was packed with heparin. It was sutured in place. A sterile dressing was applied. The patient tolerated the procedure well without any intraprocedural complications noted. PIPE FITTER APPRENTICE/MODL Reggie Woodall M.D. Record Of Operation [place] [address] [place]. [address] NAME: VIANEY LOTT : 67 STATUS : ADM IN PAT#: [id number] AGE: 50 ADM/REG DATE : 11/11/16 MR#: [id number] REPORT SERV DATE: 11/26/16 DICTATED BY: REGGIE WOODALL DATE: 11/26/16 REPORT STATUS : Draft TRANSCRIBED BY: MONTEZ DATE: 11/26/16 / [id number] CC: Pacheco Shay D.O.
--- NOTE | ~2016-11-11 | HP ---
History And Physical [place] [id number] [facility] [place]. [address] NAME: VIANEY BARBER : 67 STATUS : ADM IN [facility]#: [id number] AGE: 50 ADM/REG DATE : 11/11/16 MR#: [id number] REPORT SERV DATE: 11/11/16 DICTATED BY: DATE: REPORT STATUS : Draft TRANSCRIBED BY: MODL DATE: 11/11/16 DATE OF ADMISSION: 11/11/2016 CHIEF COMPLAINT: Nausea, vomiting, and diarrhea. HISTORY OF PRESENT ILLNESS: Mr. Barber is a 50-year-old black male with a history of end- stage renal disease, HIV, recurrent C. diff. He underwent a stool transplantation by Dr. Rose at the end of September. He has had chronic diarrhea for months and it had improved before his last discharge, however, is back within the last week. He has actually been missing dialysis quite frequently, missed seven treatments in October and comes back to the emergency room with nausea and vomiting. He states over the last few days he was actually at the clinic on Monday, I did not mention such. He continues to have diarrhea, multiple loose stools per day. Per the patient, recently, he has had his caregiving services decreased from eight hours a day to three to four hours a day. No shortness of breath, chest pain, tightness, or pressure. His labs are significant for significant dehydration as his potassium is down to 2.9, his total protein is at 8.8, his blood pressures in the 70s. He does have chronic hypotension. Given all these, we are going to admit him for further evaluation and treatment. On evaluation, the patient did not give any history of foot infection, however, on his physical exam, he has a bandage on his left foot and he has a large open lesion to the upper foot, approximately the diameter of a tennis ball and it is open, it has gotten one area that may be approximately a quarter size and looks to be to have some necrotic area, and then on the left heel, he has gotten a decubitus ulcer, dry and scaly, no signs of skin infection. PAST MEDICAL HISTORY: End-stage renal disease, diabetes, HIV, diabetic, neuropathy, recurrent C. diff with stool transplant, chronic hypotension, tobacco abuse. SOCIAL HISTORY: He lives alone. Has no local family near by. Continues to smoke. No alcohol or illicit drug use. ALLERGIES: NONE. FAMILY MEDICAL HISTORY: No end-stage renal disease. MEDICATIONS: At home, Midodrine, Flonase, calcium acetate, Lomotil, aspirin, abacavir, Cymbalta, Neurontin, Epivir, Zofran, Crestor, Tivicay, Norvir, Lantus, Prezista, NovoLog, and paregoric. He has these medicines in the bag in his room and it is apparent that he is not taking any of his medications recently. Some of these medicines have not been filled since September. REVIEW OF SYSTEMS: 12-point review of systems obtained and negative with the exception of that in HPI. PHYSICAL EXAMINATION: History And Physical [address] [address] NAME: VIANEY BARBER : 67 STATUS : ADM IN [facility]#: [id number] AGE: 50 ADM/REG DATE : 11/11/16 MR#: [id number] REPORT SERV DATE: 11/11/16 DICTATED BY: DATE: REPORT STATUS : Draft TRANSCRIBED BY: MODL DATE: 11/11/16 VITAL SIGNS: Temp 97.4, blood pressure 91/54, pulse 103, respiratory rate 27, O2 saturation is 91%. GENERAL: This is a cachectic chronically ill-appearing black male. He is awake, alert, oriented, and answers questions appropriately. HEENT: Normocephalic and atraumatic. Conjunctivae clear. Sclerae anicteric. Oral mucosa is dry. NECK: No lymphadenopathy. Neck veins flat. Respirations are even and unlabored. Breath sounds are clear to auscultation. HEART: Rate is regular. He does have a systolic murmur. No rub or gallop. ABDOMEN: Soft and nontender. Bowel sounds active. No masses. No hepatosplenomegaly. No CVA tenderness. BACK: Within normal limits. EXTREMITIES: No edema. SKIN: Dry and scaly. EXTREMITIES: The left foot is described as in the HPI. NEURO: Generalized weakness. No focal deficits. Mood and affect pleasant and appropriate. PERTINENT LABS AND X-RAYS: Sodium 136, potassium 2.9, chloride 102, CO2 of 17, BUN of 50, creatinine of 13.6, calcium 6.7, albumin of 3.5. LFTs are unremarkable. Lipase of 32. WBCs 11, H and H 11 and 34, platelets are 129,000. IMPRESSION: 1. Diarrhea. 2. Nausea and vomiting. 3. Hypotension acute on chronic. 4. Left foot open wound. 5. Left heel decubitus ulcer. 6. End-stage renal disease. 7. Human immunodeficiency virus. 8. History of recurrent Clostridium difficile with fecal transplant. 9. 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 10.Chronic hypotension, supposed to be on Imdur. PLAN: He is going to be admitted to medical floor on monitored bed. Replace potassium. ID consult. Wound Care consult. X-ray left foot to evaluate for osteomyelitis. IV fluids to include bolus and stool for C. diff. Hold dialysis for today as he looks significantly dehydrated. Further orders and recommendations pending clinical course. SE/MONTEZ BERT Serrano / [id number] History And Physical [address] [address] NAME: VIANEY BARBER : 67 STATUS : ADM IN [facility]#: [id number] AGE: 50 ADM/REG DATE : 11/11/16 MR#: [id number] REPORT SERV DATE: 11/11/16 DICTATED BY: DATE: REPORT STATUS : Draft TRANSCRIBED BY: MONTEZ DATE: 11/11/16 CC: Pacheco Shay D.O.
--- NOTE | ~2016-11-11 | DS ---
Discharge Summary [facility] [address] [place]. [address] NAME: VIANEY LOTT : 67 STATUS : DIS IN PAT#: [id number] AGE: 50 ADM/REG DATE : 11/11/16 MR#: [id number] REPORT SERV DATE: 12/14/16 DICTATED BY: REMY CASTILLO DATE: 12/13/16 REPORT STATUS : Draft TRANSCRIBED BY: MONTEZ DATE: 12/13/16 Data Collection from hospitalization DISCHARGE DIAGNOSES: 1. Recurrent Clostridium difficile. 2. Methicillin-resistant Staphylococcus aureus bacteremia. 3. End-stage renal disease. 4. Human immunodeficiency virus. 5. Failure to thrive. 6. Chronic hypotension. 7. Diabetes. 8. Diabetic neuropathy. 9. History of stool transplant. 10.Tobacco abuse. CONSULTATIONS: Dr. Reggie Woodall and Dr. Jg Cheung. PROCEDURES PERFORMED: 1. Removal of right internal jugular PermCath, 11/19/2016. 2. Left IJ Vas-Cath placement, 11/22/2016. 3. Left IJ PermCath placement, 11/25/2016. 4. Venous Doppler ultrasound of the bilateral lower extremities, 11/17/2016. 5. Right upper extremity arterial dialysis evaluation, 11/17/2016. MEDICATIONS: Ziagen 300 mg every evening; aspirin 81 mg daily; PhosLo two tablets with meals; Cymbalta 60 mg daily; Tivicay 50 mg every evening; Neurontin 600 mg three times a day; NovoLog injection insulin as instructed; Epivir 25 mL at bedtime; Mycostatin 5 mL three times a day; paregoric 25 mL twice a day; sodium bicarbonate 650 mg three times a day; vancomycin 125 mg every six hours as instructed; ProAmatine 10 mg at 9 a.m., 1 p.m., and 6 p.m.; Tylenol 650 mg every four hours as needed; Flonase nasal spray one spray in each nostril daily as needed; nitroglycerin 0.4 mg sublingually as needed; Zofran 4 mg every eight hours as needed; Crestor 10 mg every evening; vancomycin 500 mg IV after each hemodialysis through 12/04/2016. CONDITION AT DISCHARGE: Stable. DISPOSITION: The patient was discharged to [facility] on a renal-diabetic diet with activities as instructed. He would follow up with Dr. Rose, 12/12/2016. HOSPITAL COURSE: This is a 50-year-old man, who has a history of end-stage renal disease, HIV, and recurrent C difficile. He underwent a stool transplant at the end of September. He has had chronic diarrhea for months and it had improved before his last discharge, however, it returned over the past week prior to this admission. He had actually been missing dialysis quite frequently and missed seven treatments in October. He presented to the emergency room at this time with nausea and vomiting. He said that over the past few days, he had actually been at the clinic on Monday prior to this admission. He continued to have diarrhea and multiple loose stools per day according to the patient. Recently, he had had Discharge Summary [address] [place]. [address] NAME: VIANEY LOTT : 67 STATUS : DIS IN PAT#: [id number] AGE: 50 ADM/REG DATE : 11/11/16 MR#: [id number] REPORT SERV DATE: 12/14/16 DICTATED BY: REMY CASTILLO DATE: 12/13/16 REPORT STATUS : Draft TRANSCRIBED BY: MONTEZ DATE: 12/13/16 his caregiving services decreased from eight hours a day and three to four hours per day. He had no shortness of breath, chest pain, tightness, or pressure. Sodium was 2.9. Total protein was 8.8. He does have chronic hypotension. He was admitted to the hospital at this time for further evaluation and treatment. Upon admission, the patient did not give any history of foot infection, however, on his physical exam, he had a bandage on his left foot and had a large open lesion to the upper foot, approximately the diameter of a tennis ball, it was open. There was one area that may be approximately a quarter-size that look to have some necrotic area and then on his left heel, he had gotten a decubitus ulcer, dry and scaly, but no signs of skin infections. The patient was placed on a monitored bed. Potassium supplementation was going to be provided. The left foot would be x-rayed to evaluate for osteomyelitis. IV fluids were continued to include a bolus and stool will be checked for C difficile. Dialysis was held that day as he looked significantly dehydrated. The following day, C difficile study was positive. Nausea and vomiting had improved. He said he felt somewhat better. He was considering Assisted Living. Potassium supplementation continued. The patient was seen by Dr. Jg Cheung. The patient was well-known to him. The patient has recurrent C difficile. Oral vancomycin had been started. He anticipated a prolonged course of vancomycin therapy. The foot wound was of questionable etiology. It did not appear infected. On the , hemodialysis therapy was performed. He still had some diarrhea. IV fluids were continued as well as oral vancomycin. He was evaluated by physical therapy. He had a fever of 100.7. White count was 9.6. Blood cultures were obtained. He was very sluggish and ill appearing. He said he felt bad all over. He received one dose of tobramycin. With his steadily declining health and frequently missed dialysis appointments as well as recurrent C difficile despite treatment and his poor adherence with HIV therapy, it was felt that palliative care was a reasonable consideration. The patient did become lethargic and had decreased responsiveness. A normal saline bolus was given. ABGs were going to be checked as well as cardiac enzymes and EKG. On 11/15/2016, the patient was more alert. Blood pressure was stable off Levophed. Blood cultures revealed gram-positive cocci. He had persistent diarrhea. Code status was discussed at length. No decision was made. He declined palliative care. He had been transferred to the ICU for hypotension. His blood cultures were positive for MRSA. He was felt to have MRSA septicemia. IV vancomycin continued. An echocardiogram was going to be checked. The next day, he was hemodynamically stable. He did address his advance directive. Hemodialysis therapy was performed. He had no hypotension. Rectal tube was removed. It was felt that we may need to discontinue the PermCath due to his MRSA bacteremia. Hemodialysis therapy continued. He had no edema. On the , venous Doppler ultrasound of the bilateral lower extremities was performed. There was superficial thrombosis on the right side. Right upper extremity arterial dialysis evaluation was performed. The fistulas portion was patent; however, there was a clot and outflow minto proximal cephalic vein. No flow was identified on the venous drainage from this AV fistula. IV fluids were continued for hypotension. It was felt that the PermCath would need to be removed. The patient was seen by Dr. Reggie Woodall. The patient was felt to have a thrombosed fistula. He had had a PermCath placed and now, he had bacteremia. It was felt that his PermCath was infected. He consented to have this removed. On 11/19/2016, he was taken to the operating room, where he underwent the above-mentioned procedure. He tolerated Discharge Summary [facility] [id number] [place]. [address] NAME: VIANEY LOTT : 67 STATUS : DIS IN PAT#: [id number] AGE: 50 ADM/REG DATE : 11/11/16 MR#: [id number] REPORT SERV DATE: 12/14/16 DICTATED BY: REMY CASTILLO DATE: 12/13/16 REPORT STATUS : Draft TRANSCRIBED BY: MONTEZ DATE: 12/13/16 this well and there were no complications. This was performed by Dr. Reggie Woodall. He remained afebrile. Vancomycin was continued. The next day, he had no new symptoms. There was no change in his diarrhea. He remained afebrile. His last blood culture was negative. Vancomycin was continued. Cultures were going to be rechecked. Plans were being made for PermCath or Vas-Cath to be placed depending on culture results. On 11/21/2016, overall, he was feeling much better. Oral vancomycin and IV vancomycin were continued. He still had some diarrhea. No the , he had no new complaints. He had generalized weakness. Left IJ Vas-Cath was placed by Dr. Reggie Woodall. He tolerated this well and there were no complications. The following day, his blood cultures from 11/21/2016 were negative to date. He was afebrile. A long taper of oral vancomycin was planned. IV vancomycin would be continued through 12/04/2016. He still had some diarrhea. He continued to have generalized weakness. We anticipated placement of a new PermCath the following day. On the , he was taken to the operating room by Dr. Reggie Woodall, where he underwent the above-mentioned procedure. He tolerated this well and there were no complications. On 11/26/2016, hemodialysis therapy was performed. He continued to have hypotension. Swallowing and nausea had improved after receiving Reglan. On 11/28/2016, he was in no acute distress. Discharge planning was performed. He remained a full code per the patient wishes. On 11/30/2016, discharge instructions were given. Due to his improved and stable condition, he was discharged to [facility] with the above- stated instructions. Information collected by: Yael Pemberton I submit the above information as my discharge summary. PELON/MONTEZ Remy Castillo M.D. / [id number] CC: Pacheco Shay D.O. Sachin V Phade, M.D. Hal Hill, M.D. [facility]
--- NOTE | ~2016-11-11 | OP ---
Record Of Operation [facility] [address] [place] [address] NAME: VIANEY LOTT : 67 STATUS : ADM IN [facility]#: [id number] AGE: 50 ADM/REG DATE : 11/11/16 MR#: [id number] REPORT SERV DATE: 11/19/16 DICTATED BY: REGGIE WOODALL DATE: 11/19/16 REPORT STATUS : Draft TRANSCRIBED BY: MODL DATE: 11/19/16 DATE OF PROCEDURE: 11/19/2016 PREOPERATIVE DIAGNOSES: 1. Bacteremia. 2. Right internal jugular PermCath infection. POSTOPERATIVE DIAGNOSES: 1. Bacteremia. 2. Right internal jugular PermCath infection. PROCEDURE: Removal of a right internal jugular PermCath. SURGEON: Reggie Woodall M.D. CEILING INSTALLER: None. ANESTHESIA: Local. INDICATIONS: The patient is a 50-year-old gentleman with multiple comorbidities including renal failure, who has a thrombosed fistula. He had a PermCath placed and now he has bacteremia. It is thought that his PermCath is infected, so he was consented for removal. DESCRIPTION OF PROCEDURE: After informed consent was obtained, the patient's right chest was prepped and draped in usual sterile fashion. Local anesthetic was administered. The cuff of the catheter was dissected out. The catheter was removed. The tip was sent for culture. A sterile dressing was applied. The patient tolerated the procedure well without any intraprocedural complications noted. KHLOE/MONTEZ Reggie Woodall M.D. / [id number] CC: Denny Sorenson M.D.
--- NOTE | ~2016-11-11 | OP ---
Record Of Operation [facility] [address] [place] [place]. [address] NAME: VIANEY LOTT : 67 STATUS : ADM IN [facility]#: [id number] AGE: 50 ADM/REG DATE : 11/11/16 MR#: [id number] REPORT SERV DATE: 11/22/16 DICTATED BY: REGGIE WOODALL DATE: 11/22/16 REPORT STATUS : Draft TRANSCRIBED BY: MODL DATE: 11/22/16 DATE OF PROCEDURE: 11/22/2016 PREOPERATIVE DIAGNOSES: 1. End-stage renal disease. 2. History of bacteremia. POSTOPERATIVE DIAGNOSES: 1. End-stage renal disease. 2. History of bacteremia. 3. Right IJ occlusion. PROCEDURE: Left IJ Vas-Cath. SURGEON: Reggie Woodall M.D. LEAD PROCESS ENGINEER: None. ANESTHESIA: Local. INDICATIONS: The patient is a 50-year-old gentleman with a history of HIV and end-stage renal disease. He recently had his PermCath removed because of concern of infection. Now, he has consented for intervention. DESCRIPTION OF PROCEDURE: After informed consent was obtained, the patient's left neck was prepped and draped in the usual sterile fashion. An ultrasound had previously been performed in the operating room that demonstrated that the right IJ was occluded. Ultrasound-guided access was obtained of the left internal jugular vein after local anesthetic was administered. The ultrasound image was documented on the chart. I passed a wire centrally. I made a small skin incision. I dilated the tract. I inserted the catheter over the aforementioned wire using fluoroscopic guidance. I confirmed that the catheter was not kinked. It was sutured in place. One of the ports was aspirated and flushed very easily, the other one flushed but did not aspirate. I obtained a venogram through this port that demonstrated no significant stenosis and good placement within the right atrium. Given the fact that the lines could be reversed and dialysis could still be performed this way, I packed the catheter with heparinized saline. A sterile dressing was applied. The patient tolerated the procedure well without any intraprocedural complications noted. NATURAL SCIENCES DEPARTMENT CHAIR/MONTEZ Reggie Woodall M.D. Record Of Operation [facility] [address] [place]. [address] NAME: VIANEY LOTT : 67 STATUS : ADM IN PAT#: [id number] AGE: 50 ADM/REG DATE : 11/11/16 MR#: [id number] REPORT SERV DATE: 11/22/16 DICTATED BY: REGGIE WOODALL DATE: 11/22/16 REPORT STATUS : Draft TRANSCRIBED BY: MODL DATE: 11/22/16 / [id number] CC: Pacheco hSay D.O. Joseph Watlington, M.D.
[2016-11-11 14:36] LABS: BASOPHILS 0.2 %; BASOPHILS ABSOLUTE 0.02 10/3/uL (0.0-0.16); EOSINOPHILS 1.3 %; EOSINOPHILS ABSOLUTE 0.15 10/3/uL (0.0-0.53); IMMATURE GRANULOCYTES 0.3 %; IMMATURE GRANULOCYTES ABSOLUTE 0.03 10/3/uL (0.0-0.11); LYMPHOCYTES 13.9 %; LYMPHOCYTES ABSOLUTE 1.62 10/3/uL (0.67-4.30); MEAN CORPUS HGB CONC 34.2 g/dL (32.0-36.0); MEAN CORPUSCULAR HEMOGLOB 31.3 pg (26.0-34.0); MEAN CORPUSCULAR VOLUME 91.5 fL (80-100); MEAN PLATELET VOLUME 11.1 fL (9.2-13.0); MONOCYTES 7.3 %; MONOCYTES ABSOLUTE 0.85 10/3/uL (0.21-1.20); NEUTROPHILS ABSOLUTE 8.99 10/3/uL (2.02-8.40); PLATELET COUNT 129 10/3/uL (150-400); RBC DISTRIBUTION WIDTH 14.9 % (12.0-16.0)
[2016-11-11 14:39] LABS: ER CBC TAT 0 Hrs 12 Mins; HEMATOCRIT 34.5 % (40.0-51.0); HEMOGLOBIN 11.8 g/dL (13.6-17.8); MANUAL DIFF NO %; RED CELL COUNT 3.77 10/6/uL (4.7-6.1); WHITE BLOOD CELLS 11.7 10/3/uL (4.5-10.5)
[2016-11-11 14:54] LABS: ALBUMIN 3.5 G/DL (3.5-5.0); CHLORIDE, SERUM 102 MMOL/L (96-112); CO2 (CARBON DIOXIDE) 17 MMOL/L (24-34); SGOT(AST) 30 U/L (5-40); SGPT(ALT) 33 U/L (5-65); SODIUM, SERUM 136 MMOL/L (135-148); TOTAL BILIRUBIN 0.5 MG/DL (0-1.2)
[2016-11-11 14:58] LABS: A/G RATIO 0.7 (0.7-1.9); ALKALINE PHOSPHATASE 128 U/L (45-117); BUN (BLOOD UREA NITROGEN) 50 MG/DL (6-23); CALCIUM, SERUM 6.7 MG/DL (8.5-10.4); GFR AFRICAN AMERICAN 4 ML/MIN (>=60); GFR NON AFRICAN AMERICAN 4 ML/MIN (>=60); GLOBULIN 5.3 G/DL (2.5-4.1); GLUCOSE, SERUM 133 MG/DL (60-99); POTASSIUM, SERUM 2.9 MMOL/L (3.5-5.3); TOTAL PROTEIN 8.8 G/DL (6.0-8.5)
[~2016-11-11 15:06] MED LIST changes: +NOVOPEN SC
[2016-11-11] MEDS ORDERED: [UNRECOGNIZED DRUG - OTHER] PO (15:55)
[2016-11-12 07:07] LABS: BASOPHILS 0.4 %; BASOPHILS ABSOLUTE 0.04 10/3/uL (0.0-0.16); EOSINOPHILS 2.3 %; EOSINOPHILS ABSOLUTE 0.23 10/3/uL (0.0-0.53); HEMOGLOBIN 10.1 g/dL (13.6-17.8); IMMATURE GRANULOCYTES 0.1 %; IMMATURE GRANULOCYTES ABSOLUTE 0.01 10/3/uL (0.0-0.11); LYMPHOCYTES 19.8 %; LYMPHOCYTES ABSOLUTE 1.99 10/3/uL (0.67-4.30); MEAN CORPUSCULAR HEMOGLOB 31.2 pg (26.0-34.0); MEAN CORPUSCULAR VOLUME 91.7 fL (80-100); MEAN PLATELET VOLUME 11.1 fL (9.2-13.0); MONOCYTES 8.4 %; MONOCYTES ABSOLUTE 0.84 10/3/uL (0.21-1.20); NEUTROPHILS ABSOLUTE 6.92 10/3/uL (2.02-8.40); PLATELET COUNT 123 10/3/uL (150-400); RBC DISTRIBUTION WIDTH 14.9 % (12.0-16.0); RED CELL COUNT 3.24 10/6/uL (4.7-6.1)
[2016-11-12 07:21] LABS: HEMATOCRIT 29.7 % (40.0-51.0); MANUAL DIFF NO %
[2016-11-12 07:22] LABS: A/G RATIO 0.7 (0.7-1.9); ALBUMIN 2.9 G/DL (3.5-5.0); ALKALINE PHOSPHATASE 121 U/L (45-117); BUN (BLOOD UREA NITROGEN) 54 MG/DL (6-23); CHLORIDE, SERUM 109 MMOL/L (96-112); GFR AFRICAN AMERICAN 4 ML/MIN (>=60); GFR NON AFRICAN AMERICAN 4 ML/MIN (>=60); GLOBULIN 4.4 G/DL (2.5-4.1); GLUCOSE, SERUM 115 MG/DL (60-99); POTASSIUM, SERUM 3.1 MMOL/L (3.5-5.3); SGOT(AST) 25 U/L (5-40); SGPT(ALT) 29 U/L (5-65); SODIUM, SERUM 140 MMOL/L (135-148); TOTAL BILIRUBIN 0.5 MG/DL (0-1.2); TOTAL PROTEIN 7.3 G/DL (6.0-8.5)
[2016-11-12 07:23] LABS: CALCIUM, SERUM 6.2 MG/DL (8.5-10.4)
[2016-11-12 07:43] LABS: CO2 (CARBON DIOXIDE) 13 MMOL/L (24-34)
[2016-11-12 17:09] LABS: ALBUMIN 2.9 G/DL (3.5-5.0); BUN (BLOOD UREA NITROGEN) 56 MG/DL (6-23); CHLORIDE, SERUM 111 MMOL/L (96-112); GFR AFRICAN AMERICAN 4 ML/MIN (>=60); GFR NON AFRICAN AMERICAN 4 ML/MIN (>=60); GLUCOSE, SERUM 95 MG/DL (60-99); PHOSPHORUS, SERUM 8.9 MG/DL (2.5-4.5); POTASSIUM, SERUM 3.7 MMOL/L (3.5-5.3); SODIUM, SERUM 139 MMOL/L (135-148)
[2016-11-12 17:10] LABS: CALCIUM, SERUM 5.8 MG/DL (8.5-10.4); CO2 (CARBON DIOXIDE) 11 MMOL/L (24-34)
[2016-11-13 07:01] LABS: BASOPHILS 0.3 %; BASOPHILS ABSOLUTE 0.03 10/3/uL (0.0-0.16); EOSINOPHILS 1.1 %; EOSINOPHILS ABSOLUTE 0.13 10/3/uL (0.0-0.53); HEMATOCRIT 29.3 % (40.0-51.0); HEMOGLOBIN 9.7 g/dL (13.6-17.8); IMMATURE GRANULOCYTES 0.3 %; IMMATURE GRANULOCYTES ABSOLUTE 0.03 10/3/uL (0.0-0.11); LYMPHOCYTES 15.4 %; MEAN CORPUS HGB CONC 33.1 g/dL (32.0-36.0); MEAN CORPUSCULAR HEMOGLOB 30.9 pg (26.0-34.0); MEAN CORPUSCULAR VOLUME 93.3 fL (80-100); MEAN PLATELET VOLUME 10.5 fL (9.2-13.0); MONOCYTES 7.4 %; MONOCYTES ABSOLUTE 0.87 10/3/uL (0.21-1.20); NEUTROPHILS 75.5 %; NEUTROPHILS ABSOLUTE 8.82 10/3/uL (2.02-8.40); PLATELET COUNT 137 10/3/uL (150-400); RED CELL COUNT 3.14 10/6/uL (4.7-6.1); WHITE BLOOD CELLS 11.7 10/3/uL (4.5-10.5)
[2016-11-13 07:09] LABS: MANUAL DIFF NO %
[2016-11-13 07:14] LABS: ALBUMIN 2.9 G/DL (3.5-5.0); BUN (BLOOD UREA NITROGEN) 59 MG/DL (6-23); CALCIUM, SERUM 5.9 MG/DL (8.5-10.4); CHLORIDE, SERUM 113 MMOL/L (96-112); CO2 (CARBON DIOXIDE) 10 MMOL/L (24-34); GFR AFRICAN AMERICAN 4 ML/MIN (>=60); GFR NON AFRICAN AMERICAN 3 ML/MIN (>=60); GLUCOSE, SERUM 93 MG/DL (60-99); PHOSPHORUS, SERUM 8.5 MG/DL (2.5-4.5); POTASSIUM, SERUM 3.9 MMOL/L (3.5-5.3); SODIUM, SERUM 140 MMOL/L (135-148)
[2016-11-13 17:23] LABS: ALBUMIN 2.6 G/DL (3.5-5.0); BUN (BLOOD UREA NITROGEN) 58 MG/DL (6-23); CHLORIDE, SERUM 107 MMOL/L (96-112); GFR AFRICAN AMERICAN 4 ML/MIN (>=60); GFR NON AFRICAN AMERICAN 4 ML/MIN (>=60); POTASSIUM, SERUM 3.5 MMOL/L (3.5-5.3); SODIUM, SERUM 140 MMOL/L (135-148)
[2016-11-13 17:26] LABS: CALCIUM, SERUM 5.7 MG/DL (8.5-10.4); CO2 (CARBON DIOXIDE) 18 MMOL/L (24-34); GLUCOSE, SERUM 283 MG/DL (60-99); PHOSPHORUS, SERUM 7.4 MG/DL (2.5-4.5)
[2016-11-14 07:43] LABS: BASOPHILS 0.3 %; BASOPHILS ABSOLUTE 0.03 10/3/uL (0.0-0.16); EOSINOPHILS 1.6 %; EOSINOPHILS ABSOLUTE 0.15 10/3/uL (0.0-0.53); HEMATOCRIT 27.8 % (40.0-51.0); HEMOGLOBIN 9.5 g/dL (13.6-17.8); IMMATURE GRANULOCYTES 0.2 %; IMMATURE GRANULOCYTES ABSOLUTE 0.02 10/3/uL (0.0-0.11); LYMPHOCYTES ABSOLUTE 1.35 10/3/uL (0.67-4.30); MEAN CORPUS HGB CONC 34.2 g/dL (32.0-36.0); MEAN CORPUSCULAR HEMOGLOB 30.9 pg (26.0-34.0); MEAN CORPUSCULAR VOLUME 90.6 fL (80-100); MONOCYTES 5.5 %; MONOCYTES ABSOLUTE 0.53 10/3/uL (0.21-1.20); NEUTROPHILS 78.4 %; NEUTROPHILS ABSOLUTE 7.56 10/3/uL (2.02-8.40); PLATELET COUNT 133 10/3/uL (150-400); RBC DISTRIBUTION WIDTH 14.6 % (12.0-16.0); RED CELL COUNT 3.07 10/6/uL (4.7-6.1); WHITE BLOOD CELLS 9.6 10/3/uL (4.5-10.5)
[2016-11-14 07:47] LABS: MANUAL DIFF NO %
[2016-11-14 08:03] LABS: ALBUMIN 2.7 G/DL (3.5-5.0); CHLORIDE, SERUM 103 MMOL/L (96-112); CO2 (CARBON DIOXIDE) 19 MMOL/L (24-34); GFR AFRICAN AMERICAN 4 ML/MIN (>=60); GFR NON AFRICAN AMERICAN 4 ML/MIN (>=60); POTASSIUM, SERUM 3.4 MMOL/L (3.5-5.3); SODIUM, SERUM 137 MMOL/L (135-148)
[2016-11-14 08:04] LABS: BUN (BLOOD UREA NITROGEN) 64 MG/DL (6-23); CALCIUM, SERUM 5.7 MG/DL (8.5-10.4); GLUCOSE, SERUM 144 MG/DL (60-99); PHOSPHORUS, SERUM 8.4 MG/DL (2.5-4.5)
[2016-11-14 15:24] LABS: BE (BASE EXCESS) 1.1 MEQ/L (0 +/- 2.5); CARBOXYHEMOGLOBIN 0.4 % (0-3); HEMOBLOGIN CONTENT 10.4 G/DL (14-18); INSTRUMENT SERIAL # 8083; METHEMOGLOBIN 0.3 % (0-3); O2 CONTENT 13.8 VOL% (18-24); PCO2 (CO2 TENSION) 32 MMHG (35-45); PO2 (O2 TENSION) 72 MMHG (79-93); SAMPLE Arterial; pH 7.49 (7.37-7.43)
[2016-11-14 15:25] LABS: ALLENS TEST Pos
[2016-11-14 15:35] LABS: TROPONIN I <0.02 NG/ML (<0.05)
[2016-11-14 15:36] LABS: CK-MB 4.8 NG/ML; CPK 117 U/L (0-200)
[2016-11-14 16:23] LABS: PROCALCITONIN 0.87 ng/mL (<0.5)
[2016-11-14 23:43] LABS: CPK 105 U/L (0-200); TROPONIN I 0.03 NG/ML (<0.05)
[2016-11-14 23:44] LABS: CK-MB 2.8 NG/ML
[2016-11-15 05:05] LABS: BASOPHILS 0.4 %; BASOPHILS ABSOLUTE 0.04 10/3/uL (0.0-0.16); EOSINOPHILS ABSOLUTE 0.11 10/3/uL (0.0-0.53); HEMATOCRIT 29.5 % (40.0-51.0); HEMOGLOBIN 9.9 g/dL (13.6-17.8); IMMATURE GRANULOCYTES 0.3 %; IMMATURE GRANULOCYTES ABSOLUTE 0.03 10/3/uL (0.0-0.11); LYMPHOCYTES 11.5 %; LYMPHOCYTES ABSOLUTE 1.25 10/3/uL (0.67-4.30); MEAN CORPUS HGB CONC 33.6 g/dL (32.0-36.0); MEAN CORPUSCULAR HEMOGLOB 31.4 pg (26.0-34.0); MEAN PLATELET VOLUME 10.6 fL (9.2-13.0); MONOCYTES 8.9 %; MONOCYTES ABSOLUTE 0.97 10/3/uL (0.21-1.20); NEUTROPHILS 77.9 %; NEUTROPHILS ABSOLUTE 8.51 10/3/uL (2.02-8.40); PLATELET COUNT 144 10/3/uL (150-400); RBC DISTRIBUTION WIDTH 14.7 % (12.0-16.0); RED CELL COUNT 3.15 10/6/uL (4.7-6.1); WHITE BLOOD CELLS 10.9 10/3/uL (4.5-10.5)
[2016-11-15 05:14] LABS: MANUAL DIFF NO %; MEAN CORPUSCULAR VOLUME 93.7 fL (80-100)
[2016-11-15 05:19] LABS: ALBUMIN 2.7 G/DL (3.5-5.0); CHLORIDE, SERUM 107 MMOL/L (96-112); CPK 92 U/L (0-200); POTASSIUM, SERUM 3.3 MMOL/L (3.5-5.3); TROPONIN I 0.02 NG/ML (<0.05)
[2016-11-15 05:27] LABS: BUN (BLOOD UREA NITROGEN) 33 MG/DL (6-23); CALCIUM, SERUM 6.8 MG/DL (8.5-10.4); CK-MB 3.4 NG/ML; CO2 (CARBON DIOXIDE) 23 MMOL/L (24-34); CREATININE 8.87 MG/DL (0.70-1.30); GFR AFRICAN AMERICAN 7 ML/MIN (>=60); GFR NON AFRICAN AMERICAN 6 ML/MIN (>=60); GLUCOSE, SERUM 103 MG/DL (60-99); SODIUM, SERUM 144 MMOL/L (135-148)
[2016-11-16 04:59] LABS: BASOPHILS 0.4 %; BASOPHILS ABSOLUTE 0.03 10/3/uL (0.0-0.16); EOSINOPHILS 3.3 %; EOSINOPHILS ABSOLUTE 0.27 10/3/uL (0.0-0.53); HEMATOCRIT 30.6 % (40.0-51.0); HEMOGLOBIN 10.3 g/dL (13.6-17.8); IMMATURE GRANULOCYTES 0.1 %; IMMATURE GRANULOCYTES ABSOLUTE 0.01 10/3/uL (0.0-0.11); LYMPHOCYTES 24.3 %; LYMPHOCYTES ABSOLUTE 1.99 10/3/uL (0.67-4.30); MEAN CORPUS HGB CONC 33.7 g/dL (32.0-36.0); MEAN CORPUSCULAR HEMOGLOB 31.5 pg (26.0-34.0); MEAN CORPUSCULAR VOLUME 93.6 fL (80-100); MEAN PLATELET VOLUME 10.8 fL (9.2-13.0); MONOCYTES 9.8 %; NEUTROPHILS 62.1 %; NEUTROPHILS ABSOLUTE 5.08 10/3/uL (2.02-8.40); PLATELET COUNT 154 10/3/uL (150-400); RBC DISTRIBUTION WIDTH 14.4 % (12.0-16.0); RED CELL COUNT 3.27 10/6/uL (4.7-6.1); WHITE BLOOD CELLS 8.2 10/3/uL (4.5-10.5)
[2016-11-16 05:04] LABS: ALBUMIN 2.8 G/DL (3.5-5.0); CALCIUM, SERUM 7.1 MG/DL (8.5-10.4); CHLORIDE, SERUM 104 MMOL/L (96-112); CO2 (CARBON DIOXIDE) 20 MMOL/L (24-34); PHOSPHORUS, SERUM 5.3 MG/DL (2.5-4.5); POTASSIUM, SERUM 3.5 MMOL/L (3.5-5.3); SODIUM, SERUM 139 MMOL/L (135-148)
[2016-11-16 05:05] LABS: BUN (BLOOD UREA NITROGEN) 41 MG/DL (6-23); CREATININE 9.96 MG/DL (0.70-1.30); GFR AFRICAN AMERICAN 6 ML/MIN (>=60); GFR NON AFRICAN AMERICAN 5 ML/MIN (>=60); GLUCOSE, SERUM 159 MG/DL (60-99); MANUAL DIFF NO %
[2016-11-17 07:24] LABS: BASOPHILS 0.6 %; BASOPHILS ABSOLUTE 0.04 10/3/uL (0.0-0.16); EOSINOPHILS 4.9 %; EOSINOPHILS ABSOLUTE 0.31 10/3/uL (0.0-0.53); HEMATOCRIT 30.6 % (40.0-51.0); HEMOGLOBIN 10.3 g/dL (13.6-17.8); IMMATURE GRANULOCYTES 0.2 %; IMMATURE GRANULOCYTES ABSOLUTE 0.01 10/3/uL (0.0-0.11); LYMPHOCYTES 37.5 %; LYMPHOCYTES ABSOLUTE 2.36 10/3/uL (0.67-4.30); MEAN CORPUS HGB CONC 33.7 g/dL (32.0-36.0); MEAN CORPUSCULAR HEMOGLOB 31.7 pg (26.0-34.0); MEAN CORPUSCULAR VOLUME 94.2 fL (80-100); MEAN PLATELET VOLUME 10.4 fL (9.2-13.0); MONOCYTES 10.2 %; MONOCYTES ABSOLUTE 0.64 10/3/uL (0.21-1.20); NEUTROPHILS 46.6 %; NEUTROPHILS ABSOLUTE 2.94 10/3/uL (2.02-8.40); PLATELET COUNT 146 10/3/uL (150-400); RBC DISTRIBUTION WIDTH 14.6 % (12.0-16.0); RED CELL COUNT 3.25 10/6/uL (4.7-6.1); WHITE BLOOD CELLS 6.3 10/3/uL (4.5-10.5)
[2016-11-17 07:25] LABS: MANUAL DIFF NO %
[2016-11-17 07:36] LABS: ALBUMIN 3.2 G/DL (3.5-5.0); CALCIUM, SERUM 7.4 MG/DL (8.5-10.4); CHLORIDE, SERUM 110 MMOL/L (96-112); CO2 (CARBON DIOXIDE) 23 MMOL/L (24-34); GLUCOSE, SERUM 137 MG/DL (60-99); POTASSIUM, SERUM 3.5 MMOL/L (3.5-5.3); SODIUM, SERUM 143 MMOL/L (135-148)
[2016-11-17 07:37] LABS: BUN (BLOOD UREA NITROGEN) 21 MG/DL (6-23); CREATININE 6.63 MG/DL (0.70-1.30); GFR AFRICAN AMERICAN 10 ML/MIN (>=60); GFR NON AFRICAN AMERICAN 9 ML/MIN (>=60); PHOSPHORUS, SERUM 3.7 MG/DL (2.5-4.5)
[2016-11-18 12:47] LABS: BASOPHILS 0.6 %; BASOPHILS ABSOLUTE 0.04 10/3/uL (0.0-0.16); EOSINOPHILS 3.7 %; EOSINOPHILS ABSOLUTE 0.27 10/3/uL (0.0-0.53); HEMATOCRIT 30.4 % (40.0-51.0); HEMOGLOBIN 10.3 g/dL (13.6-17.8); IMMATURE GRANULOCYTES 0.1 %; IMMATURE GRANULOCYTES ABSOLUTE 0.01 10/3/uL (0.0-0.11); LYMPHOCYTES 42.1 %; LYMPHOCYTES ABSOLUTE 3.05 10/3/uL (0.67-4.30); MEAN CORPUS HGB CONC 33.9 g/dL (32.0-36.0); MEAN CORPUSCULAR HEMOGLOB 31.6 pg (26.0-34.0); MEAN CORPUSCULAR VOLUME 93.3 fL (80-100); MEAN PLATELET VOLUME 10.3 fL (9.2-13.0); MONOCYTES 10.1 %; MONOCYTES ABSOLUTE 0.73 10/3/uL (0.21-1.20); NEUTROPHILS 43.4 %; NEUTROPHILS ABSOLUTE 3.14 10/3/uL (2.02-8.40); PLATELET COUNT 150 10/3/uL (150-400); RBC DISTRIBUTION WIDTH 14.4 % (12.0-16.0); RED CELL COUNT 3.26 10/6/uL (4.7-6.1); WHITE BLOOD CELLS 7.2 10/3/uL (4.5-10.5)
[2016-11-18 12:52] LABS: MANUAL DIFF NO %
[2016-11-18 12:59] LABS: ALBUMIN 3.1 G/DL (3.5-5.0); CALCIUM, SERUM 7.4 MG/DL (8.5-10.4); CHLORIDE, SERUM 110 MMOL/L (96-112); CO2 (CARBON DIOXIDE) 19 MMOL/L (24-34); GFR AFRICAN AMERICAN 8 ML/MIN (>=60); GFR NON AFRICAN AMERICAN 7 ML/MIN (>=60); GLUCOSE, SERUM 124 MG/DL (60-99); PHOSPHORUS, SERUM 4.3 MG/DL (2.5-4.5); POTASSIUM, SERUM 3.5 MMOL/L (3.5-5.3); SODIUM, SERUM 141 MMOL/L (135-148)
[2016-11-18 13:01] LABS: BUN (BLOOD UREA NITROGEN) 31 MG/DL (6-23); CREATININE 8.49 MG/DL (0.70-1.30)
[2016-11-18 16:38] LABS: HIV-1 VIRAL LOAD RESULT Not Detected (NOTDET); HIV-1 VIRAL RESULT Not Detected (NOTDET)
[2016-11-20 07:21] LABS: BASOPHILS 0.7 %; BASOPHILS ABSOLUTE 0.06 10/3/uL (0.0-0.16); EOSINOPHILS 3.2 %; EOSINOPHILS ABSOLUTE 0.27 10/3/uL (0.0-0.53); HEMATOCRIT 31.1 % (40.0-51.0); HEMOGLOBIN 10.4 g/dL (13.6-17.8); IMMATURE GRANULOCYTES 0.2 %; IMMATURE GRANULOCYTES ABSOLUTE 0.02 10/3/uL (0.0-0.11); LYMPHOCYTES 41.1 %; LYMPHOCYTES ABSOLUTE 3.46 10/3/uL (0.67-4.30); MEAN CORPUS HGB CONC 33.4 g/dL (32.0-36.0); MEAN CORPUSCULAR HEMOGLOB 31.3 pg (26.0-34.0); MEAN CORPUSCULAR VOLUME 93.7 fL (80-100); MEAN PLATELET VOLUME 10.7 fL (9.2-13.0); MONOCYTES 7.5 %; MONOCYTES ABSOLUTE 0.63 10/3/uL (0.21-1.20); NEUTROPHILS 47.3 %; NEUTROPHILS ABSOLUTE 3.98 10/3/uL (2.02-8.40); PLATELET COUNT 147 10/3/uL (150-400); RBC DISTRIBUTION WIDTH 14.2 % (12.0-16.0); RED CELL COUNT 3.32 10/6/uL (4.7-6.1); WHITE BLOOD CELLS 8.4 10/3/uL (4.5-10.5)
[2016-11-20 07:22] LABS: MANUAL DIFF NO %
[2016-11-20 07:40] LABS: ALBUMIN 3.3 G/DL (3.5-5.0); BUN (BLOOD UREA NITROGEN) 35 MG/DL (6-23); CALCIUM, SERUM 7.4 MG/DL (8.5-10.4); CHLORIDE, SERUM 105 MMOL/L (96-112); CO2 (CARBON DIOXIDE) 21 MMOL/L (24-34); CREATININE 7.73 MG/DL (0.70-1.30); GFR AFRICAN AMERICAN 9 ML/MIN (>=60); GFR NON AFRICAN AMERICAN 7 ML/MIN (>=60); GLUCOSE, SERUM 232 MG/DL (60-99); PHOSPHORUS, SERUM 5.1 MG/DL (2.5-4.5); POTASSIUM, SERUM 3.6 MMOL/L (3.5-5.3); SODIUM, SERUM 136 MMOL/L (135-148)
[2016-11-21 13:15] LABS: BASOPHILS 0.7 %; BASOPHILS ABSOLUTE 0.06 10/3/uL (0.0-0.16); EOSINOPHILS 3.7 %; EOSINOPHILS ABSOLUTE 0.34 10/3/uL (0.0-0.53); HEMATOCRIT 30.8 % (40.0-51.0); HEMOGLOBIN 10.5 g/dL (13.6-17.8); IMMATURE GRANULOCYTES 0.2 %; IMMATURE GRANULOCYTES ABSOLUTE 0.02 10/3/uL (0.0-0.11); LYMPHOCYTES 36.9 %; LYMPHOCYTES ABSOLUTE 3.36 10/3/uL (0.67-4.30); MEAN CORPUS HGB CONC 34.1 g/dL (32.0-36.0); MEAN CORPUSCULAR HEMOGLOB 31.5 pg (26.0-34.0); MEAN CORPUSCULAR VOLUME 92.5 fL (80-100); MEAN PLATELET VOLUME 10.9 fL (9.2-13.0); MONOCYTES 7.6 %; MONOCYTES ABSOLUTE 0.69 10/3/uL (0.21-1.20); NEUTROPHILS 50.9 %; NEUTROPHILS ABSOLUTE 4.64 10/3/uL (2.02-8.40); PLATELET COUNT 150 10/3/uL (150-400); RBC DISTRIBUTION WIDTH 13.9 % (12.0-16.0); RED CELL COUNT 3.33 10/6/uL (4.7-6.1); WHITE BLOOD CELLS 9.1 10/3/uL (4.5-10.5)
[2016-11-21 13:17] LABS: MANUAL DIFF NO %
[2016-11-21 13:36] LABS: ALBUMIN 3.2 G/DL (3.5-5.0); BUN (BLOOD UREA NITROGEN) 57 MG/DL (6-23); CALCIUM, SERUM 7.8 MG/DL (8.5-10.4); CHLORIDE, SERUM 103 MMOL/L (96-112); CO2 (CARBON DIOXIDE) 19 MMOL/L (24-34); CREATININE 9.49 MG/DL (0.70-1.30); GFR AFRICAN AMERICAN 7 ML/MIN (>=60); GFR NON AFRICAN AMERICAN 6 ML/MIN (>=60); GLUCOSE, SERUM 285 MG/DL (60-99); PHOSPHORUS, SERUM 6.4 MG/DL (2.5-4.5); POTASSIUM, SERUM 3.8 MMOL/L (3.5-5.3); SODIUM, SERUM 133 MMOL/L (135-148)
[2016-11-22 14:00] LABS: BASOPHILS 0.5 %; BASOPHILS ABSOLUTE 0.04 10/3/uL (0.0-0.16); EOSINOPHILS 3.5 %; EOSINOPHILS ABSOLUTE 0.29 10/3/uL (0.0-0.53); HEMATOCRIT 29.2 % (40.0-51.0); IMMATURE GRANULOCYTES 0.2 %; IMMATURE GRANULOCYTES ABSOLUTE 0.02 10/3/uL (0.0-0.11); LYMPHOCYTES 35.5 %; LYMPHOCYTES ABSOLUTE 2.95 10/3/uL (0.67-4.30); MEAN CORPUS HGB CONC 34.2 g/dL (32.0-36.0); MEAN CORPUSCULAR HEMOGLOB 31.3 pg (26.0-34.0); MEAN CORPUSCULAR VOLUME 91.5 fL (80-100); MEAN PLATELET VOLUME 10.6 fL (9.2-13.0); MONOCYTES 6.5 %; MONOCYTES ABSOLUTE 0.54 10/3/uL (0.21-1.20); NEUTROPHILS 53.8 %; NEUTROPHILS ABSOLUTE 4.46 10/3/uL (2.02-8.40); PLATELET COUNT 137 10/3/uL (150-400); RBC DISTRIBUTION WIDTH 13.9 % (12.0-16.0); RED CELL COUNT 3.19 10/6/uL (4.7-6.1); WHITE BLOOD CELLS 8.3 10/3/uL (4.5-10.5)
[2016-11-22 14:01] LABS: MANUAL DIFF NO %
[2016-11-22 14:11] LABS: ALBUMIN 3.1 G/DL (3.5-5.0); CALCIUM, SERUM 7.8 MG/DL (8.5-10.4); CHLORIDE, SERUM 107 MMOL/L (96-112); CO2 (CARBON DIOXIDE) 16 MMOL/L (24-34); PHOSPHORUS, SERUM 6.6 MG/DL (2.5-4.5); POTASSIUM, SERUM 3.8 MMOL/L (3.5-5.3); SODIUM, SERUM 137 MMOL/L (135-148)
[2016-11-22 14:12] LABS: BUN (BLOOD UREA NITROGEN) 64 MG/DL (6-23); GFR AFRICAN AMERICAN 6 ML/MIN (>=60); GFR NON AFRICAN AMERICAN 5 ML/MIN (>=60); GLUCOSE, SERUM 215 MG/DL (60-99)
[2016-11-23 05:37] LABS: BASOPHILS 0.9 %; BASOPHILS ABSOLUTE 0.07 10/3/uL (0.0-0.16); EOSINOPHILS 3.9 %; EOSINOPHILS ABSOLUTE 0.29 10/3/uL (0.0-0.53); HEMATOCRIT 28.4 % (40.0-51.0); HEMOGLOBIN 9.7 g/dL (13.6-17.8); IMMATURE GRANULOCYTES 0.1 %; IMMATURE GRANULOCYTES ABSOLUTE 0.01 10/3/uL (0.0-0.11); LYMPHOCYTES 31.9 %; MEAN CORPUS HGB CONC 34.2 g/dL (32.0-36.0); MEAN CORPUSCULAR HEMOGLOB 31.2 pg (26.0-34.0); MEAN CORPUSCULAR VOLUME 91.3 fL (80-100); MEAN PLATELET VOLUME 10.5 fL (9.2-13.0); MONOCYTES 6.3 %; MONOCYTES ABSOLUTE 0.47 10/3/uL (0.21-1.20); NEUTROPHILS 56.9 %; NEUTROPHILS ABSOLUTE 4.28 10/3/uL (2.02-8.40); PLATELET COUNT 128 10/3/uL (150-400); RBC DISTRIBUTION WIDTH 14.2 % (12.0-16.0); RED CELL COUNT 3.11 10/6/uL (4.7-6.1); WHITE BLOOD CELLS 7.5 10/3/uL (4.5-10.5)
[2016-11-23 05:41] LABS: MANUAL DIFF NO %
[2016-11-23 05:55] LABS: A/G RATIO 0.9 (0.7-1.9); ALBUMIN 3.3 G/DL (3.5-5.0); CALCIUM, SERUM 7.3 MG/DL (8.5-10.4); CHLORIDE, SERUM 109 MMOL/L (96-112); GLOBULIN 3.6 G/DL (2.5-4.1); GLUCOSE, SERUM 176 MG/DL (60-99); POTASSIUM, SERUM 3.6 MMOL/L (3.5-5.3); SGOT(AST) 13 U/L (5-40); SGPT(ALT) 18 U/L (5-65); SODIUM, SERUM 139 MMOL/L (135-148); TOTAL BILIRUBIN 0.4 MG/DL (0-1.2); TOTAL PROTEIN 6.9 G/DL (6.0-8.5)
[2016-11-23 05:56] LABS: ALKALINE PHOSPHATASE 89 U/L (45-117); BUN (BLOOD UREA NITROGEN) 41 MG/DL (6-23); CO2 (CARBON DIOXIDE) 21 MMOL/L (24-34); CREATININE 6.92 MG/DL (0.70-1.30); GFR AFRICAN AMERICAN 10 ML/MIN (>=60); GFR NON AFRICAN AMERICAN 8 ML/MIN (>=60); PHOSPHORUS, SERUM 4.5 MG/DL (2.5-4.5)
[2016-11-24 08:38] LABS: BASOPHILS 1.2 %; BASOPHILS ABSOLUTE 0.09 10/3/uL (0.0-0.16); EOSINOPHILS 4.2 %; EOSINOPHILS ABSOLUTE 0.32 10/3/uL (0.0-0.53); HEMATOCRIT 26.7 % (40.0-51.0); IMMATURE GRANULOCYTES 0.1 %; IMMATURE GRANULOCYTES ABSOLUTE 0.01 10/3/uL (0.0-0.11); LYMPHOCYTES 38.1 %; MEAN CORPUS HGB CONC 33.7 g/dL (32.0-36.0); MEAN CORPUSCULAR VOLUME 92.1 fL (80-100); MEAN PLATELET VOLUME 10.5 fL (9.2-13.0); MONOCYTES 8.7 %; MONOCYTES ABSOLUTE 0.66 10/3/uL (0.21-1.20); NEUTROPHILS 47.7 %; NEUTROPHILS ABSOLUTE 3.63 10/3/uL (2.02-8.40); PLATELET COUNT 129 10/3/uL (150-400); RBC DISTRIBUTION WIDTH 14.3 % (12.0-16.0); WHITE BLOOD CELLS 7.6 10/3/uL (4.5-10.5)
[2016-11-24 08:44] LABS: MANUAL DIFF NO %
[2016-11-24 09:02] LABS: BUN (BLOOD UREA NITROGEN) 53 MG/DL (6-23); CALCIUM, SERUM 7.1 MG/DL (8.5-10.4); CHLORIDE, SERUM 110 MMOL/L (96-112); CO2 (CARBON DIOXIDE) 19 MMOL/L (24-34); CREATININE 8.31 MG/DL (0.70-1.30); GFR AFRICAN AMERICAN 8 ML/MIN (>=60); GFR NON AFRICAN AMERICAN 7 ML/MIN (>=60); GLUCOSE, SERUM 239 MG/DL (60-99); SODIUM, SERUM 140 MMOL/L (135-148)
[2016-11-25 05:10] LABS: HEMATOCRIT 28.5 % (40.0-51.0); HEMOGLOBIN 9.5 g/dL (13.6-17.8)
[2016-11-25 05:11] LABS: CALCIUM, SERUM 7.4 MG/DL (8.5-10.4); CHLORIDE, SERUM 110 MMOL/L (96-112); CO2 (CARBON DIOXIDE) 18 MMOL/L (24-34); GFR AFRICAN AMERICAN 11 ML/MIN (>=60); GFR NON AFRICAN AMERICAN 10 ML/MIN (>=60); GLUCOSE, SERUM 203 MG/DL (60-99); POTASSIUM, SERUM 4.2 MMOL/L (3.5-5.3); SODIUM, SERUM 139 MMOL/L (135-148)
[2016-11-25 05:12] LABS: BUN (BLOOD UREA NITROGEN) 38 MG/DL (6-23); CREATININE 6.29 MG/DL (0.70-1.30)
[2016-11-26 05:20] LABS: BASOPHILS 0.3 %; BASOPHILS ABSOLUTE 0.03 10/3/uL (0.0-0.16); EOSINOPHILS ABSOLUTE 0.37 10/3/uL (0.0-0.53); HEMATOCRIT 25.7 % (40.0-51.0); HEMOGLOBIN 8.9 g/dL (13.6-17.8); IMMATURE GRANULOCYTES 0.1 %; IMMATURE GRANULOCYTES ABSOLUTE 0.01 10/3/uL (0.0-0.11); LYMPHOCYTES 31.6 %; LYMPHOCYTES ABSOLUTE 2.96 10/3/uL (0.67-4.30); MEAN CORPUS HGB CONC 34.6 g/dL (32.0-36.0); MEAN CORPUSCULAR VOLUME 92.4 fL (80-100); MEAN PLATELET VOLUME 10.8 fL (9.2-13.0); MONOCYTES 7.1 %; MONOCYTES ABSOLUTE 0.66 10/3/uL (0.21-1.20); NEUTROPHILS 56.9 %; NEUTROPHILS ABSOLUTE 5.33 10/3/uL (2.02-8.40); PLATELET COUNT 107 10/3/uL (150-400); RBC DISTRIBUTION WIDTH 14.3 % (12.0-16.0); RED CELL COUNT 2.78 10/6/uL (4.7-6.1); WHITE BLOOD CELLS 9.4 10/3/uL (4.5-10.5)
[2016-11-26 05:23] LABS: MANUAL DIFF NO %
[2016-11-26 05:34] LABS: BUN (BLOOD UREA NITROGEN) 48 MG/DL (6-23); CALCIUM, SERUM 7.8 MG/DL (8.5-10.4); CHLORIDE, SERUM 112 MMOL/L (96-112); CO2 (CARBON DIOXIDE) 15 MMOL/L (24-34); CREATININE 7.83 MG/DL (0.70-1.30); GFR AFRICAN AMERICAN 8 ML/MIN (>=60); GFR NON AFRICAN AMERICAN 7 ML/MIN (>=60); GLUCOSE, SERUM 198 MG/DL (60-99); PHOSPHORUS, SERUM 5.9 MG/DL (2.5-4.5); POTASSIUM, SERUM 4.5 MMOL/L (3.5-5.3); SODIUM, SERUM 140 MMOL/L (135-148)
[2016-11-28 09:26] LABS: BASOPHILS 0.5 %; BASOPHILS ABSOLUTE 0.04 10/3/uL (0.0-0.16); EOSINOPHILS ABSOLUTE 0.46 10/3/uL (0.0-0.53); HEMATOCRIT 23.4 % (40.0-51.0); HEMOGLOBIN 7.8 g/dL (13.6-17.8); IMMATURE GRANULOCYTES 0.1 %; IMMATURE GRANULOCYTES ABSOLUTE 0.01 10/3/uL (0.0-0.11); LYMPHOCYTES 34.3 %; LYMPHOCYTES ABSOLUTE 2.64 10/3/uL (0.67-4.30); MEAN CORPUS HGB CONC 33.3 g/dL (32.0-36.0); MEAN CORPUSCULAR HEMOGLOB 30.7 pg (26.0-34.0); MEAN CORPUSCULAR VOLUME 92.1 fL (80-100); MEAN PLATELET VOLUME 10.5 fL (9.2-13.0); MONOCYTES 8.2 %; MONOCYTES ABSOLUTE 0.63 10/3/uL (0.21-1.20); NEUTROPHILS 50.9 %; NEUTROPHILS ABSOLUTE 3.91 10/3/uL (2.02-8.40); PLATELET COUNT 94 10/3/uL (150-400); RBC DISTRIBUTION WIDTH 14.2 % (12.0-16.0); RED CELL COUNT 2.54 10/6/uL (4.7-6.1); WHITE BLOOD CELLS 7.7 10/3/uL (4.5-10.5)
[2016-11-28 09:37] LABS: MANUAL DIFF NO %
[2016-11-28 09:42] LABS: ALBUMIN 3.2 G/DL (3.5-5.0); CALCIUM, SERUM 7.5 MG/DL (8.5-10.4); CHLORIDE, SERUM 110 MMOL/L (96-112); GLUCOSE, SERUM 217 MG/DL (60-99); POTASSIUM, SERUM 3.9 MMOL/L (3.5-5.3); SODIUM, SERUM 139 MMOL/L (135-148)
[2016-11-28 09:43] LABS: BUN (BLOOD UREA NITROGEN) 23 MG/DL (6-23); CO2 (CARBON DIOXIDE) 25 MMOL/L (24-34); CREATININE 3.85 MG/DL (0.70-1.30); GFR AFRICAN AMERICAN 20 ML/MIN (>=60); GFR NON AFRICAN AMERICAN 17 ML/MIN (>=60); PHOSPHORUS, SERUM 2.3 MG/DL (2.5-4.5)
[2016-11-30 08:14] LABS: BASOPHILS 0.9 %; BASOPHILS ABSOLUTE 0.06 10/3/uL (0.0-0.16); EOSINOPHILS 6.5 %; EOSINOPHILS ABSOLUTE 0.42 10/3/uL (0.0-0.53); HEMATOCRIT 23.4 % (40.0-51.0); HEMOGLOBIN 7.9 g/dL (13.6-17.8); IMMATURE GRANULOCYTES 0.2 %; IMMATURE GRANULOCYTES ABSOLUTE 0.01 10/3/uL (0.0-0.11); LYMPHOCYTES 44.2 %; LYMPHOCYTES ABSOLUTE 2.84 10/3/uL (0.67-4.30); MEAN CORPUS HGB CONC 33.8 g/dL (32.0-36.0); MEAN CORPUSCULAR HEMOGLOB 31.7 pg (26.0-34.0); MEAN PLATELET VOLUME 10.9 fL (9.2-13.0); MONOCYTES 7.3 %; MONOCYTES ABSOLUTE 0.47 10/3/uL (0.21-1.20); NEUTROPHILS 40.9 %; NEUTROPHILS ABSOLUTE 2.63 10/3/uL (2.02-8.40); RBC DISTRIBUTION WIDTH 14.3 % (12.0-16.0); RED CELL COUNT 2.49 10/6/uL (4.7-6.1); WHITE BLOOD CELLS 6.4 10/3/uL (4.5-10.5)
[2016-11-30 08:15] LABS: MANUAL DIFF NO %; PLATELET COUNT 125 10/3/uL (150-400)
[2016-11-30 08:44] LABS: CALCIUM, SERUM 7.5 MG/DL (8.5-10.4); CHLORIDE, SERUM 109 MMOL/L (96-112); CO2 (CARBON DIOXIDE) 21 MMOL/L (24-34); GLUCOSE, SERUM 218 MG/DL (60-99); POTASSIUM, SERUM 4.6 MMOL/L (3.5-5.3); SODIUM, SERUM 141 MMOL/L (135-148)
[2016-11-30 08:45] LABS: BUN (BLOOD UREA NITROGEN) 51 MG/DL (6-23); CREATININE 6.77 MG/DL (0.70-1.30); GFR AFRICAN AMERICAN 10 ML/MIN (>=60); GFR NON AFRICAN AMERICAN 9 ML/MIN (>=60)
== END 2016-11-30 16:37 | DRG 314 ==
LOC: ER 15:06 → 2SO 16:31 → CCU 11-14 16:10 → 2SO 11-16 18:14
PROVIDERS: Internal Medicine Infectious Disease; Internal Medicine Nephrology; Nurse Practitioner; Registered Nurse; Surgery
PROC: 0XP Anatomical Regions, Upper Extremities, Removal (ICD-10-PCS; principal; 2016-11-19)
PROC: 05HN33Z Insertion of Infusion Device into Left Internal Jugular Vein, Percutaneous Approach (ICD-10-PCS; 2016-11-22)
PROC: B544ZZA Ultrasonography of Left Jugular Veins, Guidance (ICD-10-PCS; 2016-11-22)
PROC: 05HN33Z Insertion of Infusion Device into Left Internal Jugular Vein, Percutaneous Approach (ICD-10-PCS; 2016-11-25)
PROC: B544ZZA Ultrasonography of Left Jugular Veins, Guidance (ICD-10-PCS; 2016-11-25)
DX: T82.7XXA Infection and inflammatory reaction due to other cardiac and vascular devices, implants and grafts, initial encounter (principal); A41.02 Sepsis due to Methicillin resistant Staphylococcus aureus; N18.6 End stage renal disease; B20 Human immunodeficiency virus [HIV] disease; I12.0 Hypertensive chronic kidney disease with stage 5 chronic kidney disease or end stage renal disease; D50.9 Iron deficiency anemia, unspecified; F17.210 Nicotine dependence, cigarettes, uncomplicated; A04.7 Enterocolitis due to Clostridium difficile; I95.89 Other hypotension; R62.7 Adult failure to thrive; R19.7 Diarrhea, unspecified; F32.9 Major depressive disorder, single episode, unspecified; M21.372 Foot drop, left foot; M21.371 Foot drop, right foot; L89.629 Pressure ulcer of left heel, unspecified stage; E11.21 Type 2 diabetes mellitus with diabetic nephropathy; R11.2 Nausea with vomiting, unspecified; E11.22 Type 2 diabetes mellitus with diabetic chronic kidney disease; E11.40 Type 2 diabetes mellitus with diabetic neuropathy, unspecified; Z99.2 Dependence on renal dialysis
CPT/HCPCS: 36556; 36558; 36600; 73630-LT; 77001; 80048; 80053; 80069; 80202; 81001; 82330; 82550; 82553; 82805; 82962; 83690; 83735; 84132; 84145; 84484; 85014; 85018; 85025; 87040; 87070; 87077; 87150; 87186; 87493; 87493-59; 87536; 87641; 93005; 93306; 93931; 93970; 96374; 97110-GP; 97161-GP; 97530-GP; 99285; A9270-GY; C1752; G0257; J0610; J2250; J2370; J2405; J2765; J3010; J3260; J3370; J3480; P9047; Q9967